=== PATIENT | female | born 1970 | race Caucasian/White ===

== ENCOUNTER 2025-05-06 17:19 | Emergency (ER) | payer OTHER, SELFPAY ==
--- OUTSIDE RECORDS SUMMARY | 2025-04-30 15:20 | XMS_ITS | Encounter Summary ---
Author Organization [facility] Address [address] [place] [id number] Care Team Providers Care Director Organizational Name Role Phone Jennifer Oliver Primary Care Provider [phone] Reason for Visit * Reason Comments TCM BERTA 04/25 - 04/27 for NSTEMI Encounter Details Date Type Department Care Team (Late st Contact Info) Description 04/30/2025 3:20 PM CDT Office Visit [facility] Family [facility] - [place] [address] [place] [address] Jennifer Oliver APNP [address], [place] [id number] TCM (BERTA 04/25 - 04/27 for NSTEMI) Social History Tobacco Use Types Packs/Day Years Used Date Smoking Tobacco: Every Day Cigarettes 0.5 35 Last attempted to quit: 2023 Passive Smoke Exposure: Past Smokeless Tobacco: Never Tobacco Cessation:Ready to Q uit: No; Counseling Given: Yes Comments:counseled by Dr Brandt Alcohol Use Standard Drinks/Week Comments Not Currently 0 (1 standard drink = 0.6 oz pur e alcohol) <1/week B1300 Health Literacy Answer Date Recor ded How often do you need to hav e someone help you when you read instructions, pamphlets, or other written material from your doctor or pharmacy? Never 04/26/2025 [facility] Utilities Answer Date Recorded In the past 12 months has e [employer], gas, oil, or water [employer] threatened to shut off services in your home? No 04/26/2025 Humiliation, Afraid, Rape, and Kick questionnair e Answer Date Recorded Within the last year, have y ou been afraid of your partner or ex-partner? No 04/26/2025 Within the last year, have y ou been humiliated or emotionally abused in other ways by your partner or ex-partner? No Within the last year, have y ou been kicked, hit, slapped, or otherwise physically hurt by your partner or ex-partner? No 04/26/2025 Within the last year, have y ou been raped or forced to have any kind of sexual activity by your partner or ex-partner? No 04/26/2025 Social Connection and Isolation Panel Answer Date Recorded In a typical week, how many times do you talk on the phone with family, friends, or neighbors? More than three times a week 04/26/2025 How often do you get togethe r with friends or relatives? Once a week 04/26/2025 How often do you attend [facility] or methodist services? Never 04/26/2025 Do you belong to any clubs o r organizations such as episcopalian groups, unions, fraternal or athletic groups, or school groups? No 04/26/2025 How often do you attend meet ings of the clubs or organizations you belong to? Never 04/26/2025 Are you , , di vorced, , never , or living with a partner? 04/26/2025 AUDIT-C Answer Date Recorded Q1: How often do you have a drink containing alc ohol? Monthly or less 04/26/2025 Q2: How many drinks containi ng alcohol do you have on a typical day when you are drinking? 1 or 2 04/26/2025 Q3: How often do you have si x or more drinks on one occasion? Never 04/26/2025 Overall Financial Resource Strain (CARDIA) Answe r Date Recorded How hard is it for you to pa y for the very basics like food, housing, medical care, and heating? Not hard at all 04/26/2025 PHQ-2 Answer Date Recorded Patient Health Questionnaire-2 Score 5 12/21/2024 [facility] - Occupational Stress Questionnaire Answer Date Recorded Do you feel stress - tense, restless, nervous, or anxious, or unable to sleep at night because your mind is troubled all the time - these days? Only a little 04/26/2025 Exercise Vital Sign Answer Date Recorde d On average, how many days pe r week do you engage in moderate to strenuous exercise (like a brisk walk)? 0 days 04/26/2025 On average, how many minutes do you engage in exercise at this level? 0 min 04/26/2025 Hunger Vital Sign Answer Date Recorded Within the past 12 months, y ou worried that your food would run out before you got the money to buy more. Never true 04/26/20 25 Within the past 12 months, t he food you bought just didn't last and you didn't have money to get more. Never true 04/26/2025 PRAPARE - Transportation Answer Date Re corded In the past 12 months, has l ack of transportation kept you from medical appointments or from getting medications? No 08/2024 In the past 12 months, has l ack of transportation kept you from meetings, work, or from getting things needed for daily living? No 04/26/2025 Housing Stability Vital Sign Answer Marco e Recorded In the last 12 months, was t here a time when you were not able to pay the mortgage or rent on time? No 04/26/2025 In the past 12 months, how m any times have you moved where you were living? 0 04/26/2025 At any time in the past 12 m [facility], were you homeless or living in a jail (including now)? 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 Sex Female 8:00 PM CDT Gender Identity Not on file Sexual Orientation Not on file documented as of this encounter Last Filed Vital Signs Vital Sign Reading Time Taken Comments Blood Pressure 120/76 04/30/2025 3:34 PM CDT Pulse 75 04/30/2025 3:34 PM CDT Temperature 36.7 C (98 F) 04/30/2025 3:34 PM CDT Respiratory Rate 16 04/30/2025 3:34 PM CDT Oxygen Saturation 98% 04/30/2025 3:34 PM CDT Inhaled Oxygen Concentration - - Weight 65.3 kg (144 lb) 04/30/2025 3:34 PM CDT Height 170.2 cm (5' 7 ) 04/30/2025 3:34 PM CDT Body Mass Index 22.55 04/30/2025 3:34 PM CDT documented in this encounter Functional Status * Are you deaf or do you have serious difficulty hearing Answer Date of Assessment Author Status No 04/26/2025 1:00 AM CDT Sonya Adam RN Active * Are you blind or do you have serious difficulty seeing, even when wearing glasses? Answer Date of Assessment Author Status No 04/26/2025 1:00 AM CDT Sonya Adam RN Active * Do you have serious difficulty walking or climbing stairs? Answer Date of Assessment Author Status No 04/26/2025 1:00 AM JOHNYT Sonya Adam RN Active * Do you have difficulty dressing or bathing? Answer Date of Assessment Author Status No 04/26/2025 1:00 AM CDT Sonya Adam RN Active * Because of a physical, mental, or emotional condition, do you have difficulty doing errands alone such as visiting a doctor's office or shopping? Answer Date of Assessment Author Status No 04/26/2025 1:00 AM JOHNYT Sonya Adam RN Active documented as of this encounter Mental Status * Because of a physical, mental, or emotional condition, do you have serious difficulty concentrating, remembering, or making decisions? Answer Entry Date Author Status No 04/26/2025 1:00 AM CDT Sonya Adam RN Active documented in this encounter Progress Notes * ESMER Bo - 04/30/2025 3:20 PM CDTAddended by: JENNIFER OLIVER on: 2025 09:38 AM Modules accepted: Orders * ESMER Bo - 04/30/2025 3:20 PM CDT Images from the original note were not included. Office Note Reason for Visit/Chief Complaint: TCM (BERTA 04/25 - 04/27 for NSTEMI) History of Present Illness: History of Present Illness The patient presents for TCM after a recent non-STEMI. Medications have been reconciled. She has been resting at home under supervision of her . Her appetite has recently returned to normal, with her diet initially limited to scrambled eggs and Jell-O, but now includes beans and sandwiches. She reports no issues with bowel movements. She experienced nausea without abdominal painand was unable to retain food for 2 to 3 days. She was diagnosed with a kpz-WM-hagjwpeuw myocardialinfarction (non-STEMI) in the ER, which was attributed to microvascular disease. Cardiology evaluating for MINOCA or an atypical type takotusbo cardiomyopathy. An echocardiogram revealed some heart damage, but it was not severe enough to prevent self-healing over the next few months. A CT scan was also performed, which returned normal results. She is scheduled for cardiac rehabilitation once a week for 2 hours each session. She has signed up for short-term disability for her job due to hospitalization. She reports no dental issues and is considering reducing her hydrocodone dosage. She has an upcoming appointment with Dr. Mora on 05/09/2025, which she will need to reschedule due to travel plans. She reports no wrist soreness and has been advised against lifting anything over 5 pounds forthe first week post-procedure. Her first day missed at work was 04/24/25. She has been advised to follow a Mediterranean diet. She is seeking a refill of her Adderall prescription, will check with Cardiology to ensure restart is ok. She has not yet received her influenza vaccine. She would like to receive today. Social History: Diet: Initially limited to scrambled eggs and Jell-O, now includes beans and sandwiches. PAST SURGICAL HISTORY: Gastric bypass PHQ-9: 08/30/2024 9:56 AM 12/21/2024 3:44 PM PHQ2/PHQ 9 DEPRESSION SCREEN QUESTIONAIRE Little interest or pleasure in doing things Several days Over half Feeling down, depressed, or hopeless Over half Almost all Patient Health Questionnaire-2 Score 3 5 Trouble falling or staying asleep, or sleeping too much Not at all Almost all Feeling tired or having little energy Over half Almost all Poor appetite or overeating Not at all Not at all Feeling bad about yourself - or that you are a failure or have let yourself or your family down Almost all Several days Trouble concentrating on things, such as reading the newspaper or watching television Over half Several days Moving or speaking so slowly that other people could have noticed? Or the opposite - being so fidgety or restless that you have been moving around a lot more than usual. Over half Over half Thoughts that you would be better off or hurting yourself in some way Not at all Not at all Patient Health Questionnaire-9 Score 12 15 SKYLER-7 (Generalized Anxiety Disorder) Screening 08/30/2024 9:56 AM 12/21/2024 3:44 PM SKYLER-7 Feeling nervous, anxious, or on edge 3 3 Not being able to stop or control worrying 3 3 Worrying too much about different things 3 3 Trouble relaxing 3 2 Being so restless that it is hard to sit still 3 0 Becoming easily annoyed or irritable 3 3 Feeling afraid as if something awful might happen 3 2 SKYLER-7 Total Score 21 16 How difficult have these problems made it for you to do your work, take care of things at home, or get along with other people? Somewhat difficult Somewhat difficult ROS: Review of Systems Constitutional: Negative for chills and fever. HENT: Negative for ear pain and sore throat. Respiratory: Negative for cough, shortness of breath and wheezing. Cardiovascular: Negative for chest pain and palpitations. Gastrointestinal: Negative for blood in stool, constipation, diarrhea, nausea and vomiting. Genitourinary: Negative for dysuria. Musculoskeletal: Negative for myalgias. Neurological: Negative for focal weakness, weakness and headaches. Psychiatric/Behavioral: Negative for depression and suicidal ideas. Medications: Current Outpatient Medications: albuterol sulfate HFA 108 (90 Base) MCG/ACT inhaler, Inhale 2 puffs into the lungs every 6 (six) hours as needed., Disp: 18 g, Rfl: 0 ALPRAZolam (XANAX) 0.5 MG tablet, Take 1 tablet (0.5 mg total) by mouth 2 (two) times daily as needed for Anxiety., Disp: 60 tablet, Rfl: 2 amphetamine-dextroamphetamine XR (ADDERALL XR) 20 MG 24 hr capsule, Take 1 capsule (20 mg total) bymouth every morning., Disp: 30 capsule, Rfl: 0 aspirin EC (ECOTRIN) 81 MG tablet, Take 1 tablet (81 mg total) by mouth daily for 30 days., Disp: 30 tablet, Rfl: 0 budesonide-formoterol (SYMBICORT) 80-4.5 MCG/ACT inhaler, Inhale 2 puffs into the lungs 2 (two) times daily., Disp: 10.2 g, Rfl: 1 clopidogrel (PLAVIX) 75 MG tablet, Take 1 tablet (75 mg total) by mouth daily., Disp: 90 tablet, Rfl: 3 cyanocobalamin (B-12) 1000 MCG/ML injection, 1000 MCG MONTHLY THEREAFTER, Disp: 30 mL, Rfl: 1 FLUoxetine (PROZAC) 20 MG tablet, Take 1 tablet (20 mg total) by mouth daily. Total dose of 60 mg daily, Disp: 90 tablet, Rfl: 3 FLUoxetine (PROZAC) 40 MG capsule, Take 1 capsule (40 mg total) by mouth nightly. Take a total of 60 mg nightly, Disp: 90 capsule, Rfl: 3 gabapentin (NEURONTIN) 300 MG capsule, Take 300 mg in the morning and 300 mg in the afternoon and 600 mg at bedtime., Disp: 360 capsule, Rfl: 3 HYDROcodone-acetaminophen (NORCO) 5-325 MG tablet, Take 1 tablet by mouth 2 (two) times daily as needed for Pain. Indications: Chronic Pain, Disp: 60 tablet, Rfl: 0 Hydroxychloroquine Sulfate 300 MG Tab, Take 300 mg by mouth 2 (two) times a day., Disp: 180 tablet,Rfl: 3 levothyroxine (SYNTHROID) 175 MCG tablet, Take 1 tablet (175 mcg total) by mouth every morning. Take a total 200 mcg, Disp: 90 tablet, Rfl: 1 levothyroxine (SYNTHROID) 25 MCG tablet, Take 1 tablet (25 mcg total) by mouth every morning., Disp: 90 tablet, Rfl: 1 omeprazole (PRILOSEC) 40 MG capsule, TAKE 1 CAPSULE(40 MG) BY MOUTH DAILY, Disp: 30 capsule, Rfl: 2 ondansetron (ZOFRAN-ODT) 4 MG disintegrating tablet, Take 1 tablet (4 mg total) by mouth every 8 (eight) hours as needed for Nausea., Disp: 20 tablet, Rfl: 0 QUEtiapine (SEROQUEL) 200 MG tablet, Take 1 tablet (200 mg total) by mouth nightly at bedtime., Disp: 90 tablet, Rfl: 3 rOPINIRole (REQUIP) 1 MG tablet, Take 1 tablet (1 mg total) by mouth nightly at bedtime., Disp: 90 tablet, Rfl: 3 rosuvastatin (CRESTOR) 10 MG tablet, Take 1 tablet (10 mg total) by mouth nightly at bedtime., Disp: 90 tablet, Rfl: 1 valACYclovir (VALTREX) 1 g tablet, Take 1 tablet (1,000 mg total) by mouth 2 (two) times daily., Disp: 6 tablet, Rfl: 2 vitamin D2, ergocalciferol, (DRISDOL) 1.25 mg capsule, Take 1 capsule (50,000 Units total) by mouthevery 7 days., Disp: 12 capsule, Rfl: 3 Allergies: Review of patient's allergies indicates: Allergen Reactions Cashew Nut Oil Diarrhea and Nausea and Vomiting Medical History: Past Medical History[1] Surgical History: Past Surgical History[2] Social History: Social History[3] Family History: Family History[4] PE: Physical Exam Vitals and nursing note reviewed. Constitutional: Appearance: Normal appearance. HENT: Head: Normocephalic and atraumatic. Right Ear: External ear normal. Left Ear: External ear normal. Eyes: Pupils: Pupils are equal, round, and reactive to light. Neck: Trachea: No tracheal deviation. Cardiovascular: Rate and Rhythm: Normal rate and regular rhythm. Heart sounds: Normal heart sounds. Pulmonary: Effort: Pulmonary effort is normal. No respiratory distress. Breath sounds: Normal breath sounds. No wheezing. Abdominal: General: Bowel sounds are normal. There is no distension. Palpations: Abdomen is soft. Tenderness: There is no abdominal tenderness. Musculoskeletal: General: Normal range of motion. Lymphadenopathy: Cervical: No cervical adenopathy. Skin: General: Skin is warm and dry. Findings: No rash. Neurological: Mental Status: She is alert and oriented to person, place, and time. Mental status is at baseline. Cranial Nerves: No cranial nerve deficit. Gait: Gait is intact. Psychiatric: Mood and Affect: Mood and affect normal. Cognition and Memory: Memory normal. Judgment: Judgment normal. Physical Exam General: Patient appears rested but slightly pale. Extremities: No soreness or complications noted at the wrist site. Skin: Small wounds noted from blood thinner use. Filed Vitals: 04/30/25 1534 BP: 120/76 Pulse: 75 Resp: 16 Temp: 98 ??F (36.7 ??C) SpO2: 98% Weight: 65.3 kg (144 lb) Height: 1.702 m (5' 7 ) Body mass index is 22.55 kg/m??. Diagnoses/Assessment/Plan: Assessment & Plan 1. Recent sfc-QE-hpjobweaj myocardial infarction (non-STEMI): - Diagnosed with a non-STEMI and underwent a cardiac catheterization, which revealed microvascular disease. - An echocardiogram indicated some heart damage, but it is expected to heal over the next few months. A CT scan was performed to rule out pulmonary embolism and returned normal results. - Discussed her current medications, including Plavix and aspirin for one year. She will start cardiac rehabilitation, attending 2 hours once a week. - A 90-day supply of Plavix with three refills has been prescribed. She is advised to avoid liftinganything over 5 pounds for the first week post- procedure. A work note will be provided to accommodate her rehabilitation schedule. 2. Medication management: - A message will be sent to her separations scientist to confirm if she can continue taking Adderall. - Once confirmation is received, a prescription for Adderall will be sent. -Addendum: Hold Adderall until further consultation with Cardiology. I recommend that you stop it going forward. 3. Health maintenance: - Advised to monitor her intake of sugary and greasy foods. - The influenza vaccine will be administered today. Results Imaging - Echocardiogram: Some heart damage but not enough that it cannot heal itself in a few months. - CT scan: Normal. Medications Discontinued During This Encounter Medication Reason tirzepatide (ZEPBOUND) 15 MG/0.5ML injection Pt. elected to discontinue med clopidogrel (PLAVIX) 75 MG tablet Reorder clopidogrel (PLAVIX) 75 MG tablet Encounter Diagnose(s) ICD-10-CM SNOMED CT(R) 1. Non-STEMI (non-ST elevated myocardial infarction) (CMS/HCC [facility]) I21.4 MYOCARDIAL INFARCTION clopidogrel (PLAVIX) 75 MG tablet 2. Encounter for support and coordination of transition of care Z76.89 PATIENT ENCOUNTER STATUS 3. Hospital discharge follow-up Z09 POST-DISCHARGE FOLLOW-UP I personally spent a total of 32 minutes on the day of the encounter. This includes slce-oc-gbjc and scn-zquv-oc-face time I provided on the day of the encounter & excludes time spent performing separately reportable services. Please note this report has been produced using speech recognition software and may contain errors related to that system including errors in grammar, punctuation, and spelling, as well as words and phrases that may be inappropriate. If there are any questions or concerns please feel free to contact the dictating provider for clarification. Patient consented to the use of Music Messenger (MM)ilot to record and transcribe notes during this visit. ESMER BO 04/30/2025 [1] Past Medical History: Diagnosis Date Arthritis DDD (degenerative disc disease), lumbar Depression SKYLER (generalized anxiety disorder) Hypothyroidism, unspecified Thyroidectomy Pain management Rheumatoid arthritis, unspecified ([facility]) Tobacco abuse, in remission Vitamin B 12 deficiency Vitamin D deficiency [2] Past Surgical History: Procedure Laterality Date ABDOMINOPLASTY APPENDECTOMY CHOLECYSTECTOMY COLONOSCOPY N/A 11/13/2024 COLONOSCOPY WITH TRANSVERSE AND ASCENDING COLON POLYPECTOMIES VIA HOT SNARE AND RECTAL SIGMOID COLON POLYPECTOMIES VIA COLD SNARE performed by Ru Sandoval MD at [facility] GI COSMETIC SURGERY GASTRIC BYPASS HYSTERECTOMY THYROIDECTOMY TOTAL/COMPLETE TONSILLECTOMY TUBAL LIGATION TYMPANOSTOMY TUBE PLACEMENT [3] Social History Socioeconomic History Marital status: Number of children: 4 Tobacco Use Smoking status: Every Day Current packs/day: 0.00 Average packs/day: 0.5 packs/day for 35.0 years (17.5 ttl pk-yrs) Types: Cigarettes Last attempt to quit: 2023 Years since quittin.7 Passive exposure: Past Smokeless tobacco: Never Tobacco comments: counseled by Dr Brandt Vaping Use Vaping status: Never Used Substance and Sexual Activity Alcohol use: Not Currently Comment: <1/week Drug use: Never Sexual activity: Yes Partners: Male control/protection: Surgical Other Topics Concern Caffeine Concern Yes Special Diet No Exercise No Social Drivers of Health Financial Resource Strain: Low Risk (04/26/2025) Overall Financial Resource Strain (CARDIA) Difficulty of Paying Living Expenses: Not hard at all Food Insecurity: No Food Insecurity (04/26/2025) Hunger Vital Sign Worried About Running Out of Food in the Last Year: Never true Ran Out of Food in the Last Year: Never true Transportation Needs: No Transportation Needs (04/26/2025) PRAPARE - Transportation Lack of Transportation (Medical): No Lack of Transportation (Non-Medical): No Physical Activity: Inactive (04/26/2025) Exercise Vital Sign Days of Exercise per Week: 0 days Minutes of Exercise per Session: 0 min Stress: No Stress Concern Present (04/26/2025) [place] [facility] Occupational Health - Occupational Stress Questionnaire Feeling of Stress : Only a little Social Connections: Moderately Isolated (04/26/2025) Social Connection and Isolation Panel [NHANES] Frequency of Communication with Friends and Family: More than three times a week Frequency of Social Gatherings with Friends and Family: Once a week Attends Hinduism Services: Never Active Member of Clubs or Organizations: No Attends Club or Organization Meetings: Never Marital Status: Intimate Partner Violence: Not At Risk (04/26/2025) Humiliation, Afraid, Rape, and Kick questionnaire Fear of Current or Ex-Partner: No Emotionally Abused: No Physically Abused: No Sexually Abused: No Housing Stability: Low Risk (04/26/2025) Housing Stability Vital Sign Unable to Pay for Housing in the Last Year: No Number of Times Moved in the Last Year: 0 Homeless in the Last Year: No [4] Family History Problem Relation Name Age of Onset COPD Mother Rhiannon Arthritis Mother Rhiannon Depression Mother Rhiannon Diabetes Mother Rhiannon CHF Mother Rhiannon Hypertension Mother Rhiannon Alcohol Abuse Father Wiliam Skin cancer Father Wiliam Stroke Brother Hemal 59 Diabetes Brother Gilbert Cancer Maternal Grandmother Faviola Liver cancer Maternal Grandmother Faviola [place] Maternal Grandfather NV Paternal Grandmother documented in this encounter Plan of Treatment Upcoming Encounters Date Type Department Care Team (Late st Contact Info) Description 05/22/2025 9:45 AM CDT Office Visit [facility] [facility], [address] [address] Umm Peterson FNP 3 [facility] [address] [place] [address] 05/23/2025 12:30 PM CDT Appointment [facility] Cardiopulmonary Rehab [address] [place] [address] Carlos Eduardo Mora MD [facility]. [facility] [address] [place], [place] [id number] documented as of this encounter Visit Diagnoses Diagnosis Non-STEMI (non-ST elevated myocardial infarction) ([facility])- Primary Acute myocardial infarction, subendocardial infarction, episode of care unspecified Encounter for support and coordination of transition of care Hospital discharge follow-up Other follow-up examination documented in this encounter Additional Health Concerns Assessment Noted Time PHQ-9 Depression Total Score: 15 025 3:44 PM CDT documented as of this encounter Care Teams Director Organizational Relationship Specialty Start Date End Date Jennifer Oliver APNP [address] [place] [address] PCP - General NURSE PRACTITIONER 08/30/24 documented as of this encounter
[2025-05-06] VITALS (17 sets, daily range): BP systolic 109–168; BP diastolic 66–95; PULSE 70–83; RESP 16–25; TEMP 36.8; O2SAT 93–100; BMI 21.6
--- NOTE | 2025-05-06 17:21 | XRR_ITS ---
PROCEDURE INFORMATION: Exam: XR Chest Exam date and time: 05/06/2025 5:44 PM Age: 55 years old Clinical indication: Pain; Chest pressure; Additional info: Chest pain TECHNIQUE: Imaging protocol: Radiologic exam of the chest. Views: 1 view. COMPARISON: No relevant prior studies available. FINDINGS: Lungs: There is no consolidation. Pleural spaces: No pleural effusion or pneumothorax. Heart/Mediastinum: The heart and mediastinum are normal in size. Bones/joints: Unremarkable. XR/XR chest 1V portable [id number] IMPRESSION: No acute findings.
--- OUTSIDE RECORDS SUMMARY | 2025-05-06 17:30 | XMS_ITS | Encounter Summary ---
Author Organization [facility] Address [address] [place] [address] Care Team Providers Care Payment Rep Name Role Phone Eleno Brandt MD Primary Care Provider [phone] Cyndee Oliver Primary Care Provider [phone] Encounter Details Date Type Department Care Team (Latest Contact Info) Description 04/01/2022 MyChart Message Enc [facility] Multispecialty Care - [place] [address] [address] [place] [address] Eleno Brandt MD [address] [place] [address] [address] [place] [address] Due for mammogram scheduling Social History Tobacco Use Types Packs/Day Years Used Date Smoking Tobacco: Every Day Cigarettes 0.5 35 Smokeless Tobacco: Never Comments:counseled by Dr Humaira queen Alcohol Use Standard Drinks/Week Comments Yes 0 (1 standard drink = 0.6 oz pur e alcohol) Socially PHQ-2 Answer Date Recorded PHQ-2 Score - If the patient scores above 3, please move on to questions 3-9 0 02/16/2022 Comments No Sex and Gender Information Value Date Recorded Sex Assigned at Female 08/09/2024 9:28 AM THERMODYNAMICIST Legal Sex Female 8:00 PM CDT Gender Identity Not on file Sexual Orientation Not on file COVID-19 Exposure Response Date Recorded In the last 10 days, have yo u been in contact with someone who was confirmed or suspected to have Coronavirus/COVID-19? No / Unsure 03/12/2022 12:29 PM CDT documented as of this encounter Plan of Treatment Upcoming Encounters Date Type Department Care Team (Late st Contact Info) Description 05/22/2025 9:45 AM CDT Office [facility] [address] [place] [address] Umm Peterson FNP [address] [facility] [address] [place], [place] [id number] 05/23/2025 12:30 PM CDT Appointment [facility] [address] [place] [address] Carlos Eduardo Mora MD Three [facility]. [address] [place], [place] [id number] documented as of this encounter Visit Diagnoses Not on filedocumented in this encounter Additional Health Concerns Infection Onset Date Last Indicated Resolved Time COVID-19 Rule Out 04/06/2022 04/06/2022 04/06/2022 10:36 AM CDT COVID-19 Confirmed 04/06/2022 04/09/2022 12:32 AM CDT COVID-19 Rule Out 08/10/2022 08/10/2022 08/10/2022 1:03 PM THERMODYNAMICIST COVID-19 Rule Out 06/05/2024 06/05/2024 06/05/2024 6:55 AM THERMODYNAMICIST COVID-19 Confirmed 06/05/2024 06/05/2024 12:33 AM THERMODYNAMICIST COVID-19 Rule Out 08/30/2024 08/30/2024 08/30/2024 3:04 PM THERMODYNAMICIST COVID-19 Confirmed 08/30/2024 08/30/2024 12:32 AM THERMODYNAMICIST Assessment Noted Time PHQ-9 Depression Total Score: 9 01/20/20 22 2:56 PM CDT documented as of this encounter Care Teams Payment Rep Relationship Specialty Start Date End Date Eleno Brandt MD [address] [address] PCP - General INTERNAL MEDICINE 01/19/22 08/29/24 Cyndee Oliver APNP [address] [place] [address] PCP - General NURSE PRACTITIONER 08/30/24 documented as of this encounter
--- OUTSIDE RECORDS SUMMARY | 2025-05-06 17:30 | XMS_ITS | Encounter Summary ---
Author Organization [facility] Address [address] [place] [address] Care Team Providers Care Escalation Engineer Name Role Phone Eleno Brandt MD Primary Care Provider [phone] Cyndee Olievr Primary Care Provider [phone] Encounter Details Date Type Department Care Team (Latest Contact Info) Description 07/28/2024 MyChart Message Enc [facility] Medical Group Multispecialty Care - [place] [address] [address] [place], [place] [id number] Eleno Brandt MD [address] [place] [address] [address] [place] [address] Neck and shoulder pain Social History Tobacco Use Types Packs/Day Years Used Date Smoking Tobacco: Former Cigarettes 0.5 35 Q uit: 2023 Passive Smoke Exposure: Past Smokeless Tobacco: Never Comments:counseled by Dr Humaira queen Alcohol Use Standard Drinks/Week Comments Not Currently 0 (1 standard drink = 0.6 oz pur e alcohol) <1/week PHQ-2 Answer Date Recorded Patient Health Questionnaire-2 Score 1 05/31/2024 Comments No Sex and Gender Information Value Date Recorded Sex Assigned at Female 08/09/2024 9:28 AM COAT OPERATOR INSULATOR Legal Sex Female 8:00 PM CDT Gender Identity Not on file Sexual Orientation Not on file documented as of this encounter Plan of Treatment Upcoming Encounters Date Type Department Care Team (Late st Contact Info) Description 05/22/2025 9:45 AM CDT [facility], [address] [place], [place] [address] Umm Petersno FNP [address] [facility] [address] [place] [address] 05/23/2025 12:30 PM CDT Appointment [facility] Cardiop[facility] Rehab [address] [place] [address] Carlos Eduardo Mora MD Three [facility]. [facility] [address] [place], [place] [id number] documented as of this encounter Visit Diagnoses Not on filedocumented in this encounter Additional Health Concerns Infection Onset Date Last Indicated Resolved Time COVID-19 Rule Out 08/30/2024 08/30/2024 08/30/2024 3:04 PM COAT OPERATOR INSULATOR COVID-19 Confirmed 08/30/2024 08/30/2024 12:32 AM COAT OPERATOR INSULATOR Assessment Noted Time PHQ-9 Depression Total Score: 5 05/31/20 24 10:49 AM COAT OPERATOR INSULATOR documented as of this encounter Care Teams Escalation Engineer Relationship Specialty Start Date End Date Eleno Brandt MD [address] [facility] [address] [place] [address] PCP - General INTERNAL MEDICINE 01/19/22 08/29/24 Cyndee Oliver APNP [address] [place] [id number] PCP - General NURSE PRACTITIONER 08/30/24 documented as of this encounter
--- OUTSIDE RECORDS SUMMARY | 2025-05-06 17:30 | XMS_ITS | Clinical Summary ---
Author Organization [facility] Address [facility] [place] [address] Care Team Providers Care Insurance Agency Manager Name Role Phone Cyndee Oliver ESMER Primary Care Provider [phone] Allergies Active Allergy Reactions Criticality Noted Date Comments Cashew Nut Oil Diarrhea,Nausea and Vomiting Medications valACYclovir (VALTREX) 1 g tabletIndications :Cold sore Take 1 tablet (1,000 mg total) by mouth 2 (two) times daily. 6 tablet 2 024 Active vitamin D2, ergocalciferol, (DRISDOL) 1.25 mg capsuleIndication s:Vitamin D deficiency Take 1 capsule (50,000 Units total) by mouth every 7 days. 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 90 tablet 1 024 Active gabapentin (NEURONTIN) 300 MG capsuleIndication s:Paresthesia Take 300 mg in the morning and 300 mg in the afternoon and 600 mg at bedtime. 360 capsule 3 024 Active cyanocobalamin (B-12) 1000 MCG/ML injectionIndicati ons:Fatigue, unspecified type 1000 MCG MONTHLY THEREAFTER 30 mL 1 024 Active albuterol sulfate HFA 108 (90 Base) MCG/ACT inhalerIndication s:Lab test positive for detection of COVID-19 virus Inhale 2 puffs into the lungs every 6 (six) hours as needed. 18 g 024 Active budesonide-formot alexandra (SYMBICORT) 80-4.5 MCG/ACT inhalerIndication s:Upper respiratory tract infection, unspecified type Inhale 2 puffs into the lungs 2 (two) times daily. 10.2 g 1 025 Active levothyroxine (SYNTHROID) 25 MCG tabletIndications :Postoperative hypothyroidism Take 1 tablet (25 mcg total) by mouth every morning. 90 tablet 1 025 Active levothyroxine (SYNTHROID) 175 MCG tabletIndications :Postoperative hypothyroidism Take 1 tablet (175 mcg total) by mouth every morning. Take a total 200 mcg 90 tablet 1 025 Active Hydroxychloroquin e Sulfate 300 MG TabIndications:Rh eumatoid arthritis flare (CMS/HCC HHS/HCC) Take 300 mg by mouth 2 (two) times a day. 180 tablet 3 025 Active FLUoxetine (PROZAC) 40 MG capsuleIndication s:Generalized anxiety disorder,Mild episode of recurrent major depressive disorder Take 1 capsule (40 mg total) by mouth nightly. Take a total of 60 mg nightly 90 capsule 3 025 Active FLUoxetine (PROZAC) 20 MG tabletIndications :Generalized anxiety disorder,Moderate episode of recurrent major depressive disorder (CMS/HCC),Mild episode of recurrent major depressive disorder Take 1 tablet (20 mg total) by mouth daily. Total dose of 60 mg daily 90 tablet 3 025 Active rOPINIRole (REQUIP) 1 MG tabletIndications :RLS (restless legs syndrome) Take 1 tablet (1 mg total) by mouth nightly at bedtime. 90 tablet 3 025 Active QUEtiapine (SEROQUEL) 200 MG tabletIndications :Recurrent major depressive disorder, in full remission Take 1 tablet (200 mg total) by mouth nightly at bedtime. 90 tablet 3 025 Active ALPRAZolam (XANAX) 0.5 MG tabletIndications :Generalized anxiety disorder Take 1 tablet (0.5 mg total) by mouth 2 (two) times daily as needed for Anxiety. 60 tablet 2 025 Active omeprazole (PRILOSEC) 40 MG capsuleIndication s:Acute gastric ulcer without hemorrhage or perforation TAKE 1 CAPSULE(40 MG) BY MOUTH DAILY 30 capsule 2 025 Active HYDROcodone-aceta minophen (NORCO) 5-325 MG tabletIndications :Chronic Pain Take 1 tablet by mouth 2 (two) times daily as needed for Pain. Indications: Chronic Pain 60 tablet Active aspirin EC (ECOTRIN) 81 MG tablet Take 1 tablet (81 mg total) by mouth daily for 30 days. 30 tablet 025 2024 Active ondansetron (ZOFRAN-ODT) 4 MG disintegrating tablet Take 1 tablet (4 mg total) by mouth every 8 (eight) hours as needed for Nausea. 20 tablet 025 Active clopidogrel (PLAVIX) 75 MG tabletIndications :Non-STEMI (non-ST elevated myocardial infarction) (CMS/HCC HHS/HCC) Take 1 tablet (75 mg total) by mouth daily. 90 tablet 3 Active ondansetron (ZOFRAN) 4 MG tabletIndications :Lab test positive for detection of COVID-19 virus Take 1 tablet (4 mg total) by mouth every 8 (eight) hours as needed. 20 tablet 024 2024 Discontinued(S top Taking at Discharge) tirzepatide (ZEPBOUND) 15 MG/0.5ML injectionIndicati ons:Weight Loss Inject 15 mg into the skin once a week. Indications: Weight Loss 6 mL 1 025 2024 Discontinued(P t. elected to discontinue med) ALPRAZolam (XANAX) 0.5 MG tabletIndications :Generalized anxiety disorder Take 1 tablet (0.5 mg total) by mouth 2 (two) times daily as needed for Anxiety. 60 tablet 2 025 2024 Discontinued(R eorder) omeprazole (PRILOSEC) 40 MG capsuleIndication s:Acute gastric ulcer without hemorrhage or perforation Take 1 capsule (40 mg total) by mouth daily for 30 days. 30 capsule 025 2024 Discontinued sucralfate (CARAFATE) 1 G tabletIndications :Acute gastric ulcer without hemorrhage or perforation Take 1 tablet (1 g total) by mouth 4 (four) times daily before meals and nightly. 120 tablet 025 2024 Discontinued HYDROcodone-aceta minophen (NORCO) 5-325 MG tabletIndications :Chronic Pain Take 1 tablet by mouth 2 (two) times daily as needed for Pain. Indications: Chronic Pain 60 tablet 025 2024 Discontinued(R eorder) amphetamine-dextr oamphetamine XR (ADDERALL XR) 20 MG 24 hr capsuleIndication s:Attention deficit hyperactivity disorder (ADHD), unspecified ADHD type Take 1 capsule (20 mg total) by mouth every morning. 30 capsule 025 2024 Discontinued(E xpired (Clinician Removed from Med list)) omeprazole (PRILOSEC) 40 MG capsuleIndication s:Acute gastric ulcer without hemorrhage or perforation TAKE 1 CAPSULE(40 MG) BY MOUTH DAILY 30 capsule 025 2024 Discontinued sucralfate (CARAFATE) 1 G tabletIndications :Acute gastric ulcer without hemorrhage or perforation TAKE 1 TABLET(1 GRAM) BY MOUTH FOUR TIMES DAILY BEFORE MEALS AND AT NIGHT 120 tablet 025 2024 Discontinued(S top Taking at Discharge) clopidogrel (PLAVIX) 75 MG tablet Take 1 tablet (75 mg total) by mouth daily for 30 days. 30 tablet 025 2024 Discontinued(R eorder) clopidogrel (PLAVIX) 75 MG tabletIndications :Non-STEMI (non-ST elevated myocardial infarction) ([facility]/HCC HHS/HCC) Take 1 tablet (75 mg total) by mouth daily for 30 days. 30 tablet 025 2024 Discontinued Active Problems Problem Noted Date Diagnosed Date NSTEMI (non-ST elevated myocardial infarction) 1 Abducens nerve palsy 01/04/2025 Arthralgia of knee 01/04/2025 Cigarette smoker 01/04/2025 Overview (01/04/2025): Congratulated pt on desire to quit. Reviewed options for cessation and methods of obtaining chantix. [place]ix, but her work will reimburse 100$ for chantix. Gave pt a script and information on chantix and told her to call if she is unable to handle the cost. Depression 01/04/2025 Fibrocystic breast disease 01/04/2025 Overview (01/04/2025): encouraged pt to decrease caffeine use and to avoid alcohol and tobacco. No suspicous masses at this time. Folliculitis 01/04/2025 Galactorrhea not associated with childbirth 12/24 Overview (01/04/2025): Guiac was negative. will refer pt for mammogram of biilateral breast. Pt to f/u after. 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 Reports good control of depression w/current regimen. No changes to be made at this time. Reviewed med Ses & scheduling. Reviewed red flags. Seropositive rheumatoid arthritis of multiple danyel ints 05/17/2019 Overview (01/19/2022): Last Assessment & Plan: Has upcoming appt w/Dr Lindsey Hester 11/2021. Tobacco dependence due to cigarettes 03/28/2019 Overview (01/19/2022): Last Assessment & Plan: Precontemplative. Encouraged complete smoking cessation. Discussed different types of medications & [id number] aides to help with cessation. Vitamin D deficiency 05/08/2018 Overview (01/19/2022): Last Assessment & Plan: Takes vitamin D The blood level will be checked today. Advise to get 10 min of sun exposure to the hands and face 2-3 days of the week to boost Vit D levels. Insomnia 06/27/2014 Overview (01/19/2022): Insomnia Last Assessment & Plan: Has tried multiple different medications for her insomnia. Does not want further BZD. Will trial clonidine 0.1mg qhs. Reviewed med SE & scheduling. Will stop med/call if no improvement. Reviewed good sleep hygiene: no electronics, cool/dark room, warm shower/tub prior to bedtime, no caffeine after 3-4p, no exercise 3hr prior to sleep. Insomnia 06/27/2014 Overview (11/01/2024): Insomnia Generalized anxiety disorder 06/26/2014 Overview (01/19/2022): Generalized anxiety disorder Last Assessment & Plan: No longer taking xanax. Does not want further BZD. Doing well w/hydroxyzine prn. No changes at this time. Hypothyroidism 06/26/2014 Overview (01/19/2022): Hypothyroidism Last Assessment & Plan: Levothyroxine 200mcg daily. TSH/T4 ordered; will contact with results when received. Reviewed med SE & scheduling. Reviewed sxs hypo/hyperthyroidism. No changes at this time. 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 02/23/2025 Dysfunctional uterine bleeding 01/04/2025 02/23/2025 Inadequate cervical cytology sample 01/04/2025 02/23/2025 Irregular menstrual cycle 01/04/2025 Menorrhagia 01/04/2025 02/23/2025 Rash 01/04/2025 02/23/2025 Ruptured synovial cyst of knee 01/04/2025 02/23/2025 Screen for colon cancer 06/14/202405/27 Screen for colon cancer 06/14/202410/24 Screen for colon cancer 06/14/202410/25 Screen for colon cancer 09/07/202308/26 Encounters Date Type Department Care Team Description 05/02/2025 Telephone [facility] [place] [address] [place] [address] Cyndee Oliver APNP Error 2025 MyChart Message Enc [facility] [place] [address] [place] [address] Cyndee Oliver APNP Adderall to be stopped 04/30/2025 3:20 PM CDT Office Visit [facility] [place] [address] [place] [address] Cyndee Oliver APNP TCM (BERTA 04/25 - 04/27 for NSTEMI) 04/30/2025 Travel 04/30/2025 Telephone [facility] [address] [place] [address] Cyndee Oliver APNP TCM 04/27/2025 Telephone [facility] [address] [address] Carlos Eduardo Mora MD Orders 04/26/2025 Telephone [facility], [address] [address] Carlos Eduardo Mora MD Lab Order 04/25/2025 8:14 PM CDT - 04/27/2025 10:30 AM CDT Hospital Encounter Health system [place] [address] Kendrick De La Cruz MD,PHD Ludin Blackburn MD Islam, Maaroof, MD Nausea Discharge Disposition: Home or Self Care (Routine Discharge) 04/25/2025 Travel 04/02/2025 Patient Self-Triage [facility] Provider 04/02/2025 Patient Self-Triage [facility] Provider 04/02/2025 Patient Self-Triage [facility] DEFAULT Mychart, [facility] Provider 04/02/2025 Patient Self-Triage [facility] DEFAULT Mychart, [facility] Provider 03/23/2025 3:40 PM CDT Office Visit [facility] [address] [place] [address] Cyndee Oliver APNP Medication ( Refill wants to discuss increasing her seroquil ) 03/23/2025 Travel 03/21/2025 Misc Documentation [facility] [address] [place] [address] Cyndee Oliver APNP from Last 3 Months Immunizations Immunization Administration Dates Next Due Hepatitis A/Hepatitis B(Twinrix) 05/19/2010 Influenza (Generic) 05/17/2024,,07/30/2019,2009 Influenza Adult (Generic) 06/25/2023,,04/15/2020,2019,03/26/2015,05/25/2014 MODERNA COVID-19 (12+) MRNA, LNP-S, PF, 100 MCG/ 0.5 ML DOSE 05/28/2021 PFIZER COVID-19 (ORIGINAL FORMULATION, PURPLE CAP) mRNA, LNP-S, PF, 30 MCG/0.3 ML DOSE 11/23/2021,07/29/2020,07/12/2020 Pneumococcal (Pneumovax 23) 07/24/2022 Pneumococcal (Prevnar 20) 05/31/2024 Shingrix 08/01/2022 Tdap (Adacel) 02/17/2022 Tdap (Generic) 05/19/2010 Family History Medical History Relation Comments Diabetes Brother Stroke Brother 59 Alcohol Abuse Father Skin cancer Father NC Maternal Grandfather Cancer Maternal Grandmother Liver cancer Maternal Grandmother Arthritis Mother CHF Mother COPD Mother Depression Mother Diabetes Mother Hypertension Mother NC Paternal Grandmother Relation Status Comments Brother Father Alive Maternal Grandfather Maternal Grandmother Mother Paternal Grandfather Paternal Grandmother Social History Tobacco Use Types Packs/Day Years [...] from your doctor or pharmacy? Never 04/26/2025 [facility] Utilities Answer Date Recorded In the past 12 months has [facility] [employer], [employer], or water [employer] threatened to shut off services in your [...] week 04/26/2025 How often do you attend chur or worship services? Never 04/26/2025 Do you belong to any clubs o r organizations such as congregational groups, unions, fraternal or athletic groups, or [...] Recorded Patient Health Questionnaire-2 Score 5 12/21/2024 [facility] - Occupational Stress [...] any time in the past 12 m [facility], were you homeless or living in a detention (including now)? 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 Legal Sex Female 8:00 PM CDT Gender Identity Not on file Sexual Orientation Not on file Last Filed Vital Signs Vital Sign Reading [...] Mass Index 22.55 04/30/2025 3:34 PM CDT Plan of Treatment Upcoming Encounters Date Type Department Care Team (Late st Contact Info) Description 05/22/2025 9:45 AM CDT Office Visit [facility], [address] [address] Umm Peterson, SEEMA [address] [facility] [address] [place], [place] [phone] 05/23/2025 12:30 PM CDT Appointment Health system Cardiopulmonary Rehab [address] [facility] [place] [address] Carlos Eduardo Mora MD Three [facility]. [address] [place], [place] [id number] Health Maintenance Due Date Last Done Comments Hepatitis B Vaccines (2 of 3 - Hep B Twinrix 3-dose series) 06/16/2010 05/19/2010 Zoster Vaccines (2 of 2) 09/26/2022 08/01/2022 Mammogram Screening 04/23/2024 04/23/2022 COVID-19 Vaccine ( season) 2025 11/23/2021, 05/28/2021, 07/29/2020, Additional history exists Influenza Adult (#1) 2025 05/17/2024, 06/25/2023, 06/24/2022, Additional history exists Annual Physical 05/31/2025 05/31/2024, 0803/2023, 01/19/2022 DTaP, Tdap and Td Vaccines (3 - Td or Tdap) 02/18/2032 02/17/2022, 05/19/2010 Colorectal Cancer Screening Colonoscopy (10 Years) 11/13/2034 11/13/2024 Pneumococcal Vaccine: 50+ Years Completed 05/31/2024, 07/24/2022 Hepatitis C Completed 07/04/2024, 06/25, 07/04/2024, Additional history exists PHQ-2 (Physician [place]) Completed 12/21/2024 Meningococcal B Vaccine Aged Out No l onger eligible based on patient's age to complete this topic Meningococcal Vaccine Aged Out No santos esther eligible based on patient's age to complete this topic RSV Immunizations Under 20 Months Aged Out No longer eligible based on patient's age to complete this topic Procedures Procedure Name Priority Date/Time Associated Diagnosis Comments BASIC METABOLIC PANEL Routine 04/27/2025 5:20 AM CDT CBC W/DIFF AUTOMATED Routine 04/27/2025 5:[address] ABD+PEL W CON Today 04/26/2025 2:32 PM CDT USE ECHO 2D FU LTD W CON Today 04/26/2025 2:29 PM CDT XA LHC POSS Today 04/26/2025 10:26 AM CDT POCT ACTIVATED CLOTTING TIME - ISTAT DOCKED DEVICE Routine 04/26/2025 10:12 AM CDT URINE BACTERIA CULTURE Routine 9:10 AM CDT HEPARIN, ANTI XA, UFH TIMED 04/26/2025 6:05 AM CDT LIPID PANEL Routine 04/26/2025 6:05 AM CDT TROPONIN, QUANT Routine 04/26/2025 6:05 AM CDT BASIC METABOLIC PANEL Routine 04/26/2025 6:05 AM CDT THYROID STIM HORMONE TSH Routine 04/26/2025 6:05 AM CDT HEMOGLOBIN, GLYCOSYLATED Routine 04/26/2025 6:05 AM CDT MAGNESIUM Routine 04/26/2025 6:05 AM CDT CBC W/DIFF AUTOMATED Routine 04/26/2025 6:05 AM CDT PROTHROMBIN TIME, VENOUS Routine 04/26/2025 6:05 AM CDT PROTHROMBIN TIME, VENOUS STAT 04/25/2025 11:34 PM CDT HEPARIN, ANTI XA, UFH STAT 04/25/2025 11:34 PM CDT TROPONIN, QUANT STAT 04/25/2025 11:34 PM CDT HC URINALYSIS AUTO W/O MICRO STAT 04/25/2025 9:13 PM CDT POCT GLUCOSE - DOCKED DEVICE Routine 04/25/2025 8:48 PM CDT ECG 12-LEAD Routine 04/25/2025 8:46 PM CDT POCT GLUCOSE - DOCKED DEVICE Routine 04/25/2025 6:32 PM CDT TROPONIN, QUANT STAT 04/25/2025 6:31 PM CDT LIPASE STAT 04/25/2025 6:31 PM CDT COMPREHENSIVE METABOLIC PANEL STAT 04/25/2025 6:31 PM CDT CBC W/DIFF AUTOMATED STAT 04/25/2025 6:31 PM CDT HEP C SCANNED ORDERS Routine 07/04/2024 MG SCREENING W ARRON JESS DIGI Routine 04/23/2022 2:29 PM CDT Encounter for screening mammogram for malignant neoplasm of breast from Last 3 Months or Most Recently Relevant to Health Maintenance Results * (ABNORMAL) BASIC METABOLIC PANEL (04/27/2025 5:20 AM CDT) Only the most recent of2 resultswithin the time period is included. GLUCOSE 74 70 - 99 MG/DL 04/27/2025 6:00 AM CDT [facility] BUN 12 7 - 18 MG/DL 04/27/2025 6:00 AM CDT [facility] CREATININE S/P/B 0.59 0.55 - 1.02 MG/DL 04/27/2025 6:00 AM CDT [facility] SODIUM S/P/B 138 136 - 145 MMOL/L 04/27/2025 6:00 AM T [facility] POTASSIUM S/P/B 3.2(L) 3.5 - 5.1 MMOL/L 04/27/2025 6:00 AM T [facility] CHLORIDE S/P/B 109 97 - 115 MMOL/L 04/27/2025 6:00 AM T [facility] CO2 23.8 21 - 32 MMOL/L 04/27/2025 6:00 AM T [facility] CALCIUM S/P/B 8.0(L) 8.5 - 10.1 MG/DL 04/27/2025 6:00 AM T [facility] ANION GAP 5.2 2 - 10 MMOL/L 04/27/2025 6:00 AM T [facility] BUN CREATININE RATIO 20.5 6 - 26 04/27/2025 6:00 AM T [facility] GFR ESTIMATE >90 >90 ML/MIN/1.7 3 M2 04/27/2025 6:00 AM T [facility] Comment: NOTE: eGFR is not calculated for patients <18 years of age or gender unknown. This is an estimated GFR calculation using the new CKD EPI creatinine equation without race and so does not require a correction factor for race. This estimated GFR should not be used for calculating drug doses. 04/27/2025 5:20 AM CDT Adenike León MD LABORATORY Final Result [facility] [address] [place] [address], [place] [phone] * (ABNORMAL) CBC W/DIFF AUTOMATED (04/27/2025 5:20 AM CDT) Only the most recent of3 resultswithin the time period is included. [facility] Signature WBC 4.72 4.5 - 11.0 x10'3/uL 04/27/2025 6:23 AM CDT [facility] RBC 3.47(L) 4.20 - 5.40 x10'6/uL 04/27/2025 6:23 AM CDT [facility] HGB 10.2(L) 12.0 - 16.0 G/DL 04/27/2025 6:23 AM CDT [facility] HCT 30.6(L) 38.0 - 48.0 % 04/27/2025 6:23 AM CDT [facility] MCV 88.2 81.0 - 99.0 FL 04/27/2025 6:23 AM CDT [facility] MCH 29.4 27.0 - 31.0 PG 04/27/2025 6:23 AM CDT [facility] MCHC 33.3 32.0 - 36.0 G/DL 04/27/2025 6:23 AM CDT [facility] RDW 14.7(H) 11.5 - 14.5 % 04/27/2025 6:23 AM CDT [facility] PLT 191 130 - 400 x10'3/uL 04/27/2025 6:23 AM CDT [facility] MPV 11.0 9.3 - 12.2 FL 04/27/2025 6:23 AM CDT [facility] DIFFERENTIAL TYPE AUTOMATED DIFFERENTIAL 04/27/2025 6:23 AM CDT [facility] NEUTROPHILS % 38.2 % 04/27/2025 6:23 AM CDT [facility] LYMPHOCYTES % 47.5 % 04/27/2025 6:23 AM CDT [facility] MONOCYTES % 8.3 % 04/27/2025 6:23 AM CDT [facility] EOSINOPHILS 4.7 % 04/27/2025 6:23 AM CDT [facility] BASOPHILS 1.1 % 04/27/2025 6:23 AM CDT [facility] IMMATURE GRANS % 0.2 % 04/27/20 6:23 AM CDT [facility] ABS. NEUTROPHILS 1.81 1.80 - 7.70 x10'3/uL 04/27/2025 6:23 AM CDT [facility] ABS. LYMPHOCYTES 2.24 1.00 - 4.80 x10'3/uL 04/27/2025 6:23 AM CDT [facility] ABS. MONOCYTES 0.39 0.24 - 0.86 x10'3/uL 04/27/2025 6:23 AM CDT [facility] ABS. EOSINOPHILS 0.22 0.04 - 0.36 x10'3/uL 04/27/2025 6:23 AM CDT [facility] ABS. BASOPHILS 0.05 0.01 - 0.08 x10'3/uL 04/27/2025 6:23 AM CDT [facility] ABS. IMMATURE GRANULOCYTES 0.01 0.00 - 0.49 x10'3/uL 04/27/2025 6:23 AM CDT [facility] 04/27/2025 5:20 AM CDT Adenike León MD LABORATORY Final Result [facility] [address] [place] [address], * CT ABD+PEL W CON (04/26/2025 2:32 PM CDT) Anatomical Region Laterality Modality Abdomen Computed Tomogra phy 04/26/2025 6:25 PM CDT Impressions 04/26/2025 6:32 PM CDT IMPRESSION: 1. No acute abnormality is seen within the abdomen or pelvis. 2. Nonspecific gaseous distention of sigmoid colon. Continued attention on short interval follow-up x-ray KUB is recommended. 3. Status post gastric bypass. 4. Status post cholecystectomy. 5. Possible 3.7 cm left ovarian cyst, almost certainly benign.. A follow-up pelvic ultrasound in 12 months is recommended for evaluation Ordered By: LUDIN BLACKBURN Interpreted By: Philip Mccall MD, 04/26/2025 6:25 PM Narrative 04/26/2025 6:32 PM CDT [address] [address] PROCEDURE: CT ABD+PEL W CON HISTORY: Nausea. TECHNIQUE: Helical CT of the abdomen and pelvis was performed using non-ionic intravenous contrast (Isovue-370, 100 mL). No oral contrast administered. A dose lowering technique was used for this procedure, which may include, but is not limited to, dose reduction technique, automated exposure control, the use of iterative reconstruction, and ALARA (As Low As Reasonably Achievable) / Image Gently techniques. COMPARISON: None. FINDINGS CT ABDOMEN/PELVIS: Lower thorax: There is subsegmental atelectasis in the lower lobes. The heart is normal in size. Liver: The liver is normal in size. There is no intrahepatic mass. Biliary tree: The patient is post cholecystectomy. Mild intrahepatic biliary duct dilatation, likely secondary to reservoir effect. The common bile duct measures up to 10 mm Spleen: The spleen is normal in size. Pancreas: The pancreas is normal in size and enhances homogenously. Adrenal glands: The adrenal glands are normal in size and shape. Kidneys: There are bilateral symmetric nephrograms without hydronephrosis. Lymph nodes: Abdomen: There is no abdominal adenopathy. Pelvis: There is no pelvic adenopathy. Vasculature: There is no abdominal aortic aneurysm. Atherosclerotic calcification is seen. Peritoneum/mesentery/omentum: There is no free fluid or free air. GI tract: There is no bowel obstruction. There is no abnormal bowel wall thickening to suggest acute inflammation. There is retained enteric contrast seen within the right colon. There are postsurgical changes from prior gastric bypass. Nonspecific gaseous of the sigmoid colon. Pelvic urogenital structures:The bladder is grossly unremarkable. The uterus is not seen. There is a 3.7 cm pelvic cystic lesion, likely adnexal in origin. Body wall: There are degenerative changes in the spine. No aggressive osseous lesions identified. Hjaveri: (S/I) = series number / image number Procedure Note Philip Mccall MD - 04/26/[address] [address] PROCEDURE: CT ABD+PEL W CON HISTORY: Nausea. TECHNIQUE: Helical CT of the abdomen and pelvis was performed usingnon-ionic intravenous contrast (Isovue-370, 100 mL). No oral contrastadministered. A dose lowering technique was used for this procedure, which may include,but is not limited to, dose reduction technique, automated exposurecontrol, the use of iterative reconstruction, and ALARA (As Low AsReasonably Achievable) / Image Gently techniques. COMPARISON: None. FINDINGS CT ABDOMEN/PELVIS: Lower thorax: There is subsegmental atelectasis in the lower lobes. Theheart is normal in size. Liver: The liver is normal in size. There is no intrahepatic mass. Biliary tree: The patient is post cholecystectomy. Mild intrahepaticbiliary duct dilatation, likely secondary to reservoir effect. The commonbile duct measures up to 10 mm Spleen: The spleen is normal in size. Pancreas: The pancreas is normal in size and enhances homogenously. Adrenal glands: The adrenal glands are normal in size and shape. Kidneys: There are bilateral symmetric nephrograms withouthydronephrosis. Lymph nodes: Abdomen: There is no abdominal adenopathy. Pelvis: There is no pelvic adenopathy. Vasculature: There is no abdominal aortic aneurysm. Atheroscleroticcalcification is seen. Peritoneum/mesentery/omentum: There is no free fluid or free air. GI tract: There is no bowel obstruction. There is no abnormal bowel wallthickening to suggest acute inflammation. There is retained entericcontrast seen within the right colon. There are postsurgical changes fromprior gastric bypass. Nonspecific gaseous of the sigmoid colon. Pelvic urogenital structures:The bladder is grossly unremarkable. Theuterus is not seen. There is a 3.7 cm pelvic cystic lesion, likely adnexalin origin. Body wall: There are degenerative changes in the spine. No aggressiveosseous lesions identified. Jhaveri: (S/I) = series number / image number IMPRESSION: 1. No acute abnormality is seen within the abdomen or pelvis. 2. Nonspecific gaseous distention of sigmoid colon. Continued attentionon short interval follow-up x-ray KUB is recommended. 3. Status post gastric bypass. 4. Status post cholecystectomy. 5. Possible 3.7 cm left ovarian cyst, almost certainly benign.. Afollow-up pelvic ultrasound in 12 months is recommended for evaluation Ordered By: LUDIN BLACKBURN Interpreted By: Philip Mccall MD, 04/26/2025 6:25 PM us Ludin Blackburn MD CT Final Resul t * USE ECHO 2D FU LTD W CON (04/26/2025 2:29 PM CDT) Anatomical Region Laterality Modality NA Echocardiogram 04/26/2025 1:52 PM CDT Narrative 04/26/2025 3:22 PM CDT Echocardiography Report Pat.Name: RENU WETZEL Pat.ID: [id number] .Date: 04/26/2025 Exam Time: 1:52:00 PM Study Type:ECHO WITH CARDIAC DOPPLER COMP Height: 67 in Weight: 144 lb BSA: 1.76 m2 Age: 10 1970,54Y Sex: F BP: 138/98 HR: 70 bpm Sonogrphr: Leatha Dougherty RDCS Room: [facility] History / Clinical:NSTEMI Procedures: 2D, M-mode, Doppler, Color Flow, Definity was used to enhance endocardial definition. The study quality is technically difficult. Limited Race: W ++++++++++++++++++++++++++++++++++++ SUMMARY: ++++++++++++++++++++++++++++++++++++ The left ventricular size is normal. The left ventricular systolic function is lower limits of normal. Estimated left ventricular ejection fraction is 50-55%. Moderate anteroseptal, base-mid inferoseptal hypokinesis. Mild mid-anterolateral hypokinesis. The right ventricular size is normal. Right ventricular systolic function is normal. Mild aortic regurgitation. Mild tricuspid regurgitation. ++++++++++++++++++++++++++++++++++++ FINDINGS: ++++++++++++++++++++++++++++++++++++ LV: The left ventricular size is normal. The left ventricular systolic function is lower limits of normal. Estimated left ventricular ejection fraction is 50-55%. No concentric left ventricular hypertrophy. WM: Moderate anteroseptal, base-mid inferoseptal hypokinesis. Mild mid-anterolateral hypokinesis. RV: The right ventricular size is normal. Right ventricular systolic function is normal. IVS: No evidence of ventricular septal defect. LA: The left atrial volume is normal ( less than 34 ml/M2). RA: Right atrial size is normal. IAS: Atrial septum appears intact. RAMIRO: Small pericardial effusion, without tamponade physiology. AO: Normal aortic root. SVn: Inferior vena cava is normal. Inferior vena cava shows >50% collapse with respiration consistent with normal right atrial pressure. AV: The aortic valve is trileaflet. No evidence of aortic valve stenosis. Mild aortic regurgitation. MV: Trace mitral regurgitation. PV: Pulmonic valve not well visualized. TV: Mild tricuspid regurgitation. ++++++++++++++++++++++++++++++++++++ MEASUREMENTS: ++++++++++++++++++++++++++++++++++++ DOPPLER LVOT LVOTpkPG 4 mmHg LVOTmnPG 3 mmHg LVOTpkVel 106 cm/s (70-110)+ LVOT SV 57 ml LVOT TVI 18.3 cm Right Atrium RA Press 3 mmHg Ocampo's Disk 20 AV Forward Flow AV TVI 22.5 cm AV pkPG 6 mmHg AV pkVel 122 cm/s (100-170)+ Area (TVI) 2.55 cm2 (3-5)* AV mnPG 3 mmHg Area (Dong) 2.73 cm2 (3-5)* AV Regurg Flow AV pkVel 365 cm/s AV P1/2t 699 msec AV pkPG 53 mmHg MV Forward Flow MV DeTm 190 msec MV E/A 0.8 MVA P1/2t 3.93 cm2 (4-6)* MV pkE 59.2 cm/s (60-130)* MV P1/2t 56 msec (30-60)+ MV pkA 78.1 cm/s TV Regurg Flow TV pkPG 26 mmHg TV pkVel 257 cm/s (30-70)* Right Ventricle RVsys P 29 mmHg Aortic Valve Aortic Valve Ar 1.45 Aortic Valve Ve 0.87 AV DI Value 0.81 2D Left Ventricle LVIDd 4.91 cm (3.6-5.2) LV ESV 72.7 ml LVIDs 3.64 cm (2.3-3.9) LV ESV 57.5 ml LngAxd 7.27 cm LVESV BP 65.8 ml LngAxd 7.37 cm LV EF 44.9 % LV EDV 132 ml LV EF 50.4 % LV EDV 116 ml LV EF BP 46.9 % LVEDV BP 124 ml LV SV 59.3 ml LngAxs 5.88 cm LV SV 58.5 ml LngAxs 6.1 cm LV SV BP 58.2 ml LVPW LVPWd 0.728 cm Right Ventricle RVIDd 2.44 cm (2.6-4.3)* Right Ventricle 19.1 mm Right Ventricle 31.1 mm Right and Left 0.497 Major Mimbres 63.3 mm Ventricular Septum IVSd 0.978 cm Left Atrium LA a-p 2.8 cm (2.8-3.4) LA VOLBP 30.1 ml Aorta Ao Rtd 2.8 cm LVOT LVOT 2 cm LVOTArea 3.14 cm2 Ratios IVS Inferior vena cava IVC Diam 13.8 mm LA Biplane LAVol I BP 17.1 ml/m2 RA Single Plane Right Atrium MO 7.71 mm Right Atrium Sy 15.5 ml Right Atrium Sy 40 mm Right Atrium Sy 8.8 ml/m2 Right Atrium Sy 8.52 cm2 MMODE TA Tricuspid Annul 22.2 mm <Electronic Signature> 04/26/2025 03:22 PM Neeraj Johnston M.D. Procedure Note Neeraj Johnston MD - 04/26/2025 Echocardiography Report Pat.Name: RENU WETZEL Pat.ID: [id number] .Date: 04/26/2025 Exam Time: 1:52:00 PM Study Type:ECHO WITH CARDIAC DOPPLER COMP Height: 67 in Weight: 144 lb BSA: 1.76 m2 Age: 10 1970,54Y Sex: F BP: 138/98 HR: 70 bpm Sonogrphr: Leatha Dougherty [facility] Room: [facility] History / Clinical:NSTEMI Procedures: 2D, M-mode, Doppler, Color Flow, Definity was used to enhance endocardial definition. The study quality is technically difficult. Limited Race: W ++++++++++++++++++++++++++++++++++++ SUMMARY: ++++++++++++++++++++++++++++++++++++ The left ventricular size is normal. The left ventricular systolic function is lower limits of normal. Estimated left ventricular ejection fraction is 50-55%. Moderate anteroseptal, base-mid inferoseptal hypokinesis. Mild mid-anterolateral hypokinesis. The right ventricular size is normal. Right ventricular systolic function is normal. Mild aortic regurgitation. Mild tricuspid regurgitation. ++++++++++++++++++++++++++++++++++++ FINDINGS: ++++++++++++++++++++++++++++++++++++ LV: The left ventricular size is normal. The left ventricular systolic function is lower limits of normal. Estimated left ventricular ejection fraction is 50-55%. No concentric left ventricular hypertrophy. WM: Moderate anteroseptal, base-mid inferoseptal hypokinesis. Mild mid-anterolateral hypokinesis. RV: The right ventricular size is normal. Right ventricular systolic function is normal. IVS: No evidence of ventricular septal defect. LA: The left atrial volume is normal ( less than 34 ml/M2). RA: Right atrial size is normal. IAS: Atrial septum appears intact. RAMIRO: Small pericardial effusion, without tamponade physiology. AO: Normal aortic root. SVn: Inferior vena cava is normal. Inferior vena cava shows >50% collapse with respiration consistent with normal right atrial pressure. AV: The aortic valve is trileaflet. No evidence of aortic valve stenosis. Mild aortic regurgitation. MV: Trace mitral regurgitation. PV: Pulmonic valve not well visualized. TV: Mild tricuspid regurgitation. ++++++++++++++++++++++++++++++++++++ MEASUREMENTS: ++++++++++++++++++++++++++++++++++++ DOPPLER LVOT LVOTpkPG 4 mmHg LVOTmnPG 3 mmHg LVOTpkVel 106 cm/s (70-110)+ LVOT SV 57 ml LVOT TVI 18.3 cm Right Atrium RA Press 3 mmHg Ocampo's Disk 20 AV Forward Flow AV TVI 22.5 cm AV pkPG 6 mmHg AV pkVel 122 cm/s (100-170)+ Area (TVI) 2.55 cm2 (3-5)* AV mnPG 3 mmHg Area (Dong) 2.73 cm2 (3-5)* AV Regurg Flow AV pkVel 365 cm/s AV P1/2t 699 msec AV pkPG 53 mmHg MV Forward Flow MV DeTm 190 msec MV E/A 0.8 MVA P1/2t 3.93 cm2 (4-6)* MV pkE 59.2 cm/s (60-130)* MV P1/2t 56 msec (30-60)+ MV pkA 78.1 cm/s TV Regurg Flow TV pkPG 26 mmHg TV pkVel 257 cm/s (30-70)* Right Ventricle RVsys P 29 mmHg Aortic Valve Aortic Valve Ar 1.45 Aortic Valve Ve 0.87 AV DI Value 0.81 2D Left Ventricle LVIDd 4.91 cm (3.6-5.2) LV ESV 72.7 ml LVIDs 3.64 cm (2.3-3.9) LV ESV 57.5 ml LngAxd 7.27 cm LVESV BP 65.8 ml LngAxd 7.37 cm LV EF 44.9 % LV EDV 132 ml LV EF 50.4 % LV EDV 116 ml LV EF BP 46.9 % LVEDV BP 124 ml LV SV 59.3 ml LngAxs 5.88 cm LV SV 58.5 ml LngAxs 6.1 cm LV SV BP 58.2 ml LVPW LVPWd 0.728 cm Right Ventricle RVIDd 2.44 cm (2.6-4.3)* Right Ventricle 19.1 mm Right Ventricle 31.1 mm Right and Left 0.497 Major Mimbres 63.3 mm Ventricular Septum IVSd 0.978 cm Left Atrium LA a-p 2.8 cm (2.8-3.4) LA VOLBP 30.1 ml Aorta Ao Rtd 2.8 cm LVOT LVOT 2 cm LVOTArea 3.14 cm2 Ratios IVS Inferior vena cava IVC Diam 13.8 mm LA Biplane LAVol I BP 17.1 ml/m2 RA Single Plane Right Atrium MO 7.71 mm Right Atrium Sy 15.5 ml Right Atrium Sy 40 mm Right Atrium Sy 8.8 ml/m2 Right Atrium Sy 8.52 cm2 MMODE TA Tricuspid Annul 22.2 mm <Electronic Signature> 04/26/2025 03:22 PM Neeraj Johnston M.D. us Ludin Blackburn MD ECHO Final Resul t * [facility] POSS (04/26/2025 10:26 AM CDT) Anatomical Region Laterality Modality Cardiac Mat Making Machine Tender 04/26/2025 9:30 AM CDT us Daja R Osei PATTERN CHECKER [employer] PROFESSOR Final Result * (ABNORMAL) POCT ACTIVATED CLOTTING TIME - ISTAT DOCKED DEVICE (04/26/2025 10:12 AM CDT) ACTIVATED CLOTTING TIME (ACT) 141(H) 74 - 125 SEC 04/26/2025 2:01 PM CDT [facility] PROGRAM DIRECTOR CODE [id number] 04/26/2025 2:01 PM CDT [facility] 04/26/2025 10:1 2 AM CDT Adenike León MD POCT ORDERABLES - DEVICE Final Result Performing Organization Address [facility]/ZIP Co de Phone Number [facility] [address] [place] [phone], * URINE BACTERIA CULTURE (04/26/2025 9:10 AM CDT) SPEC DESCRIPTION URINE, UNSPECIFIED 04/26/2025 9:28 AM CDT [facility] SPECIAL REQUESTS NO SPECIAL REQUEST 04/26/2025 9:28 AM CDT [facility] CULTURE RESULT POLYMICROBIAL GROWTH CONSISTENT WITH NORMAL GENITAL CLAUDY. SUSCEPTIBILITIES NOT ROUTINELY PERFORMED. 04/27/2025 9:12 AM CDT [facility] URINE SPECIMEN / Unknown 04/26/2025 9:10 AM CDT 04/26/2025 9:36 AM CDT Ludin Blackburn MD MICROBIOLOGY - GENERAL ORDE RABLES Final Result Performing Organization Address City/[facility]/ZIP Co de Phone Number [facility] [address] [place] [phone], * (ABNORMAL) HEPARIN, ANTI XA, UFH (04/26/2025 6:05 AM CDT) Only the most recent of2 resultswithin the time period is included. HEPARIN ANTI XA UFH <0.04(L) 0.30 - 0.70 IU/ML 04/26/2025 7:16 AM CDT [facility] Comment: UFH Therapeutic Anti Xa Ranges: Medical Therapeutic Range: 0.30 - 0.70 IU/mL Cardiac Therapeutic Range: 0.30 - 0.50 IU/mL Neuro Therapeutic Range: 0.20 - 0.40 IU/mL 04/26/2025 6:05 AM CDT us Ludin Blackburn MD LABORATORY Final Resul t Performing Organization Address City/[facility] [[email or web address]] Co de Phone Number [facility] [address] [place] [address], [place] [phone] * HEMOGLOBIN, GLYCATED (04/26/2025 6:05 AM CDT) HGB A1C 4.5 <5.7 % 04/26/2025 10:33 AM CDT [facility] Comment: ADA GUIDELINES 2010 5.7 TO 6.4% INCREASED RISK OF DIABETES > OR = 6.5% CONSISTENT WITH DIABETES ESTIMATED AVG GLUCOSE 82 mg/dL 04/26/2025 10:33 AM CDT [facility] 04/26/2025 6:05 AM CDT us Ludin Blackburn MD LABORATORY Final Resul t [facility] [address] [place] [address], [place] [phone] * PROTIME/INR, VENOUS (04/26/2025 6:05 AM CDT) Only the most recent of2 resultswithin the time period is included. PROTIME 11.4 10.2 - 12.9 SEC 04/26/2025 7:16 AM CDT [facility] INR 1.0 04/26/2025 7:16 AM CDT [facility] Comment: Recommended INR Therapeutic Goals: 2.0-3.0 Routine Therapy 2.5-3.5 Mechanical Prosthetic Valves (High Risk) 04/26/2025 6:05 AM CDT Milly Hernandez MD LABORATORY Final Re sult [facility] [address] [place] [address], [place] [phone] * LIPID PANEL (04/26/2025 6:05 AM CDT) Pathologist [facility] CHOLESTEROL 132 <200 MG/DL 04/26/2025 7:03 AM CDT [facility] TRIGLYCERIDES 79 <150 MG/DL 04/26/2025 7:03 AM T [facility] HDL 72 >40.0 MG/DL 04/26/2025 7:03 AM CDT [facility] LDL (CALCULATED) 44 <100 MG/DL 04/26/20 25 7:03 AM T [facility] Comment:CALCULATED USING THE FRIEDEWALD EQUATION NON HDL CHOLESTEROL 60 <130 MG/DL 04/26 7:03 AM CDT [facility] CHOL/HDL RATIO 1.8 0.0 - 4.5 04/26/2025 7:03 AM T [facility] VLDL CALCULATION 16 5 - 55 MG/DL 04/26/2025 7:03 AM CDT [facility] LIPID INTERPRETATION 04/26/2025 7:03 AM CDT [facility] Comment: NIH CONCENSUS REPORT RECOMMENDATIONS: ADULT CHILD LOW RISK: CHOLESTEROL <200 <170 TRIGLYCERIDE <150 --- HDL >=60 --- LDL <100 <110 BORDERLINE: CHOLESTEROL 200-239 170-199 TRIGLYCERIDE 150-199 --- HDL 40-59 --- LDL 100-159 110-129 HIGH RISK: CHOLESTEROL >=240 >=200 TRIGLYCERIDE >=200 --- HDL <40 --- LDL >=160 >=130 04/26/2025 6:05 AM CDT Ludin Blackburn MD LABORATORY Final Resul t Performing Organization Address City/[facility]/ZIP Co de Phone Number [facility] [address] [place] [address], [place] [phone] * (ABNORMAL) TROPONIN, QUANT (04/26/2025 6:05 AM CDT) Only the most recent of3 resultswithin the time period is included. TROPONIN I HIGH SENSITIVITY 1,089(HH) <54 ng/L 04/26/2025 7:12 AM CDT [facility] Comment: NOT CALLED PER CRITICAL VALUE POLICY HIGH DOSES OF BIOTIN, TROPONIN-SPECIFIC AUTOANTIBODIES, AND ANTIBODY THERAPY CONTAINING HAMA MAY INTERFERE WITH THIS TEST RESULT. CORRELATION TO CLINICAL HISTORY AND PRESENTATION RECOMMENDED. 04/26/2025 6:05 AM CDT Ludin Blackburn MD LABORATORY Final Resul t [facility] [address] [place] [address], [place] [phone] * (ABNORMAL) THYROID STIM HORMONE, TSH (04/26/2025 6:05 AM CDT) TSH 0.107(L) 0.358 - 3.74 uIU/ML 04/26/2025 7:12 AM CDT [facility] Comment: HIGH DOSES OF BIOTIN MAY INTERFERE WITH THIS TEST RESULT. CORRELATION TO CLINICAL HISTORY AND PRESENTATION RECOMMENDED. 04/26/2025 6:05 AM CDT Ludin Blackburn MD LABORATORY Final Resul t Performing Organization Address City/[facility]/ZIP Co de Phone Number [facility] [address] [place] [address], [place] [phone] * MAGNESIUM (04/26/2025 6:05 AM CDT) MAGNESIUM 1.8 1.8 - 2.4 MG/DL 04/26/2025 7:12 AM CDT [facility] 04/26/2025 6:05 AM CDT Ludin Blackburn MD LABORATORY Final Resul t Performing Organization Address [facility] [[email or web address]] Co de Phone Number [facility] [address] [place] [address], [place] [phone] * (ABNORMAL) URINALYSIS (04/25/2025 9:13 PM CDT) SPECIMEN TYPE URINE CLEAN CATCH 04/25/2025 9:13 PM CDT [facility] COLOR (U) YELLOW 04/25/2025 9:36 PM CDT [facility] TRANSPARENCY CLEAR 04/25/2025 9:36 PM CDT [facility] SPECIFIC GRAVITY (U) 1.048(H) 1.001 - 1.030 04/25/2025 9:36 PM CDT [facility] U PH 6.0 5.0 - 9.0 04/25/2025 9:36 PM CDT [facility] LEUKOCYTES (U) 25(A) NEGATIVE 04/25/2025 9:36 PM CDT [facility] NITRITES NEGATIVE NEGATIVE 04/25/2025 9:36 PM CDT [facility] PROTEIN RANDOM (U) 100(H) <30 MG/DL 04/25/2025 9:36 PM CDT [facility] GLUCOSE (U) NORMAL NORMAL MG/DL 04/25/2025 9:36 PM CDT [facility] KETONES MG/DL (U) 100(A) NEGATIVE MG/DL 04/25/2025 9:36 PM CDT [facility] UROBILINOGEN 3.0(A) NORMAL MG/DL 04/25/2025 9:36 PM CDT [facility] BILIRUBIN (U) 0.5(A) NEGATIVE MG/DL 04/25/2025 9:36 PM CDT [facility] BLOOD (U) NEGATIVE NEGATIVE 04/25/2025 9:36 PM CDT [facility] MUCUS MANY /LPF 04/25/2025 9:36 PM CDT [facility] WBC/HPF 16(H) <6 /HPF 04/25/2025 9:36 PM CDT [facility] RBC/HPF 6(H) <6 /HPF 04/25/2025 9:36 PM CDT [facility] BACTERIA (U) RARE(A) NONE /HPF 04/25/2025 9:36 PM CDT [facility] SQUAMOUS EPITHELIALS RARE /HPF 04/25/2025 9:36 PM CDT [facility] URINE SPECIMEN OBTAINED BY CLEAN CATCH PROCEDURE / Unknown 04/25/2025 9:13 PM CDT us Lakeisha Kitchen PA-C URINE ORDERABLES Final Resu lt Performing Organization Address City/[facility]/ZIP Co de Phone Number [facility] [address] [place] [address], * POCT glucose (04/25/2025 8:48 PM CDT) Only the most recent of2 resultswithin the time period is included. GLUCOSE POC 93 70 - 99 mg/dL 04/25/2025 8:51 PM CDT [facility] 04/25/2025 8:48 PM CDT us Attending Physician Emergency MD POCT ORDERABLES - DEVICE Final Result Performing Organization Address City/[facility] [[email or web address]] Co de Phone Number [facility] [address] [place] [phone], * ECG 12 lead (04/25/2025 8:46 PM CDT) 04/25/2025 8:46 PM CDT Narrative [facility] RAD - 04/26/2025 8:59 AM CDT [address] Test Date: 2025-04-25 Pat Name: RENU WETZEL Department: 41 Room: [facility] Gender: Female Stenocaptioner: [id number] : 1970 Requested By: LAKEISHA KITCHEN Order Number: [id number] Reading MD: Milly Hernandez Measurements Intervals Mimbres Rate: 89 P: 77 RI: 132 QRS: -30 QRSD: 106 T: 91 QT: 390 QTc: 476 Interpretive Statements SINUS RHYTHM Borderline ST Depression POSSIBLE RIGHT ATRIAL ENLARGEMENT [0.25mV P-WAVE] BORDERLINE LEFT AXIS DEVIATION [QRS AXIS < -20] Compared to ECG 05/18/2024 15:09:[address] depression Procedure Note Milly Hernandez MD - 04/26/[address] Test Date: 2025-04-25 Pat Name: RENU WETZEL Department: 41 Room: 8 Gender: Female Stenocaptioner: [id number] : 1970 Requested By: LAKEISHA KITCHEN Order Number: [id number] Reading MD: Milly Hernandez Measurements Intervals Mimbres Rate: 89 P: 77 RI: 132 QRS: -30 QRSD: 106 T: 91 QT: 390 QTc: 476 Interpretive Statements SINUS RHYTHM Borderline ST Depression POSSIBLE RIGHT ATRIAL ENLARGEMENT [0.25mV P-WAVE] BORDERLINE LEFT AXIS DEVIATION [QRS AXIS < -20] Compared to ECG 05/18/2024 15:09:[address] depression us Lakeisha Kitchen PA-C ECG ORDERABLES Final Resul t [facility] ([facility] RAD * (ABNORMAL) COMPREHENSIVE METABOLIC PANEL (04/25/2025 6:31 PM CDT) GLUCOSE 86 70 - 99 MG/DL 04/25/2025 9:22 PM CDT [facility] BUN 14 7 - 18 MG/DL 04/25/2025 9:22 PM CDT [facility] CREATININE S/P/B 0.85 0.55 - 1.02 MG/DL 04/25/2025 9:22 PM CDT [facility] SODIUM S/P/B 135(L) 136 - 145 MMOL/L 04/25/2025 9:22 PM CDT [facility] POTASSIUM S/P/B 3.6 3.5 - 5.1 MMOL/L 04/25/2025 9:22 PM CDT [facility] CHLORIDE S/P/B 103 97 - 115 MMOL/L 04/25/2025 9:22 PM CDT [facility] CO2 19.7(L) 21 - 32 MMOL/L 04/25/2025 9:22 PM CDT [facility] CALCIUM S/P/B 9.4 8.5 - 10.1 MG/DL 04/25/2025 9:22 PM CDT [facility] BILIRUBIN TOTAL S/P/B 1.1 0.2 - 1.2 MG/DL 04/25/2025 9:22 PM CDT [facility] Comment: THIS ASSAY IS NOT RECOMMENDED FOR PATIENTS UNDERGOING TREATMENT WITH ELTROMBOPAG DUE TO THE POTENTIAL FOR FALSELY ELEVATED RESULTS. TOTAL PROTEIN S/P/B 6.9 6.4 - 8.2 G/DL 04/25/2025 9:22 PM CDT [facility] ALBUMIN S/P/B 3.4 3.4 - 5.0 G/DL 04/25/2025 9:22 PM CDT [facility] AST 20 15 - 37 U/L 04/25/2025 9:22 PM CDT [facility] ALT 25 14 - 55 U/L 04/25/2025 9:22 PM CDT [facility] ALKALINE PHOSPHATASE S/P/B 74 50 - 136 U/L 04/25/2025 9:22 PM T [facility] ANION GAP 12.3(H) 2 - 10 MMOL/L 04/25/2025 9:22 PM CDT [facility] BUN CREATININE RATIO 16.5 6 - 26 04/25/2025 9:22 PM CDT [facility] A/G RATIO 1.0 1.0 - 2.0 RATIO 04/25/2025 9:22 PM CDT [facility] GFR ESTIMATE 81(L) >90 ML/MIN/1.7 3 M2 04/25/2025 9:22 PM CDT [facility] Comment: NOTE: eGFR is not calculated for patients <18 years of age or gender unknown. This is an estimated GFR calculation using the new CKD EPI creatinine equation without race and so does not require a correction factor for race. This estimated GFR should not be used for calculating drug doses. 04/25/2025 6:31 PM CDT Lakeisha Kitchen PA-C LABORATORY Final Resul t Performing Organization Address [facility] [[email or web address]] Co de Phone Number [facility] [address] [place] [address], [place] [phone] * LIPASE (04/25/2025 6:31 PM CDT) LIPASE 23 13 - 75 UNITS/L 04/25/2025 9:22 PM CDT [facility] 04/25/2025 6:31 PM CDT Lakeisha Kitchen PA-C LABORATORY Final Resul t Performing Organization Address [facility] de Phone Number [facility] [address] [place] [address], [place] [phone] * HEP C SCANNED ORDERS (07/04/2024) [facility] Scanned SCANNING Final Resu lt Performing Organization Address City/[facility] [[email or web address]] Co de Phone Number [facility] * MG SCREENING W ARRON JESS DIGI (04/23/2022 2:29 PM CDT) Anatomical Region Laterality Modality Breast Bilateral Mammography 04/23/2022 3:02 PM CDT Impressions 04/23/2022 3:07 PM CDT IMPRESSION: 1. No mammographic evidence of malignancy. Recommend annual mammogram. 2. BI-RADS Category 2: Benign. 3. TISSUE TYPE: Category B - There are areas of scattered fibroglandular density. A) A negative report should not delay a biopsy if a dominant or clinically suspicious mass is present. B) Adenosis and dense breasts may obscure an underlying neoplasm. C) Study interpreted with computer aided detection. Ordered By: ELENO BRANDT Interpreted By: David Samuels, 04/23/2022 3:02 PM Narrative 04/23/2022 3:07 PM CDT IMAGING STUDIES: MG SCREENING W ARRON JESS DIGI DATE: 04/23/2022 2:16 PM HISTORY: screening 51-year-old female for screening study to reestablish baseline. No reported family history of breast cancer. COMPARISON: None. Patient reports prior mammograms greater than 10 years ago. TECHNIQUE: Bilateral digital screening mammogram with CAD. Standard CC and MLO views. Additional left CC view. 2-D imaging and 3-D tomography. DISCUSSION: Scattered fibroglandular tissue with mild nodularity. Benign calcifications bilaterally. No abnormality marked by CAD. No mammographically suspicious mass, microcalcification, or architectural distortion. Eleno Brandt MD MAMMO Final Result from Last 3 Months or Most Recently Relevant to Health Maintenance Insurance Advance Directives * Full Code (Latest Code Status on File) Date Activated Date Inactivated Comments 04/26/2025 10:27 AM 04/27/2025 12:50 PM * Full Code Date Activated Date Inactivated Comments 04/25/2025 10:29 PM 04/26/2025 10:27 AM Care Teams Insurance Agency Manager Relationship Specialty Start Date End Date Cyndee Oliver APNP [address] [place] [address] PCP - General NURSE PRACTITIONER 08/30/24
--- OUTSIDE RECORDS SUMMARY | 2025-05-06 17:30 | XMS_ITS | Encounter Summary ---
Author Organization [facility] Address [address] [place] [address] Care Team Providers Care Payroll Supervisor Name Role Phone Eleno Brandt MD Primary Care Provider [phone] Cyndee Oliver Primary Care Provider [phone] Encounter Details Date Type Department Care Team (Late Contact Info) Description 08/10/2024 [employer] Message Enc [facility] Multispecialty Care - [address] [place] [address] [facility] Provider results Social History Tobacco Use Types Packs/Day Years [...] Sex Assigned at Female 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 [facility] [address] [place], [place] [address] documented as of this encounter Visit Diagnoses Not on filedocumented in this encounter Additional Health Concerns Infection Onset Date Last Indicated Resolved Time COVID-19 Rule Out 08/30/2024 08/30/2024 08/30/2024 3:04 PM [employer] COVID-19 Confirmed 08/30/2024 08/30/2024 12:32 AM [employer] Assessment Noted Time PHQ-9 Depression Total Score: 5 05/31/20 24 10:49 AM [employer] documented as of this encounter Care Teams Payroll Supervisor Relationship Specialty Start Date End Date Eleno Brandt MD [address] [address] PCP - General INTERNAL MEDICINE 01/19/22 08/29/24 Cyndee Oliver APNP [address] [place] [address] PCP - General NURSE PRACTITIONER 08/30/24 documented as of this encounter
--- OUTSIDE RECORDS SUMMARY | 2025-05-06 17:30 | XMS_ITS | Encounter Summary ---
Author Organization [facility] Address [address] [place] [address] Care Team Providers Care Power Shear Operator Name Role Phone Eleno Brandt MD Primary Care Provider [phone] Cyndee Oliver Primary Care Provider [phone] Encounter Details Date Type Department Care Team (Latest Contact Info) Description 06/01/2022 MyChart Message Enc [facility] Medical Group Multispecialty Care - [address] [address] [address] [place] [address] Eleno Brandt MD [address] [place] [address] [address] [place] [address] Schedule your low dose CT scan Social History Tobacco Use Types Packs/Day Years Used Date Smoking Tobacco: Every Day Cigarettes 0.3 35 Smokeless Tobacco: Never Comments:counseled by Dr Humaira queen Alcohol Use Standard Drinks/Week Comments Yes 0 (1 standard drink = 0.6 oz pur e alcohol) Socially PHQ-2 Answer Date Recorded PHQ-2 Score - If the patient scores above 3, please move on to questions 3-9 1 04/22/2022 Comments No Sex and Gender Information Value Date Recorded Sex Assigned at Female 08/09/2024 9:28 AM ENGLISH TUTOR Legal Sex Female 8:00 PM CDT Gender Identity Not on file Sexual Orientation Not on file documented as of this encounter Plan of Treatment Upcoming Encounters Date Type Department Care Team (Late st Contact Info) Description 05/22/2025 9:45 AM CDT Office Visit Arnie [place] THREE [facility] [address] [place], [place] [address] Umm Peterson FNP 3 [facility] [address] [place] [address] 05/23/2025 12:30 PM CDT Appointment [facility] Cardiopulmonary Rehab [address] [place] [address] Carlos Eduardo Mora MD Three [facility]. [facility] [address] [place], [place] [id number] documented as of this encounter Visit Diagnoses Not on filedocumented in this encounter Additional Health Concerns Infection Onset Date Last Indicated Resolved Time COVID-19 Rule Out 08/10/2022 08/10/2022 08/10/2022 1:03 PM ENGLISH TUTOR COVID-19 Rule Out 06/05/2024 06/05/2024 06/05/2024 6:55 AM ENGLISH TUTOR COVID-19 Confirmed 06/05/2024 06/05/2024 12:33 AM ENGLISH TUTOR COVID-19 Rule Out 08/30/2024 08/30/2024 08/30/2024 3:04 PM ENGLISH TUTOR COVID-19 Confirmed 08/30/2024 08/30/2024 12:32 AM ENGLISH TUTOR Assessment Noted Time PHQ-9 Depression Total Score: 9 01/20/20 22 2:56 PM CDT documented as of this encounter Care Teams Power Shear Operator Relationship Specialty Start Date End Date Eleno Brandt MD [address] [address] PCP - General INTERNAL MEDICINE 01/19/22 08/29/24 Cyndee Oliver APNP [address] [place] [address] PCP - General NURSE PRACTITIONER 2/5/25 documented as of this encounter
--- OUTSIDE RECORDS SUMMARY | 2025-05-06 17:31 | XMS_ITS | Clinical Summary ---
Author [place] [facility] [place] [address] [facility] Address [address] [place] [address] Care Team Providers Care Associate Doctor Name Role Phone Berry Morrow RN, Sarah Jane NP Primary Care Provider +1- Allergies No known active allergies Medications multivitamin tablet tablet 0 0 02/08/2014 Active b complex vitamins tablet one daily 0 0 06/26/2014 Active potassium gluconate 550 mg (90 mg) tablet one daily 0 0 06/26/2014 Active calcium carbonate-vitam in D3 (CALCIUM 600 + D,3,) 600 mg calcium- 200 unit capsule one daily 0 0 06/26/2014 Active levothyroxine (SYNTHROID) 25 mcg tablet TAKE 1 TABLET DAILY 90 tablet 3 05/23/2020 Active cyclobenzaprine (FLEXERIL) 10 mg tablet TAKE 1 TABLET THREE TIMES A DAY 270 tablet 3 11/26/2020 Active HYDROcodone-cailin taminophen (NORCO) 5-325 mg per tabletIndicatio ns:Pain Take 1 tablet by mouth every 6 (six) hours as needed for pain 8 tablet 02/22/2021 Active prochlorperazin e (COMPAZINE) 10 mg tablet Take 1 tablet (10 mg total) by mouth 2 (two) times a day as needed for nausea or vomiting 10 tablet 02/22/2021 Active buPROPion SR (ZYBAN) 150 mg 12 hr tabletIndicatio ns:Mixed anxiety depressive disorder TAKE 1 TABLET TWICE A DAY 180 tablet 3 07/29/2021 Active levothyroxine (SYNTHROID) 175 mcg tablet TAKE 1 TABLET DAILY 90 tablet 3 07/30/2021 Active naloxone (NARCAN) 4 mg/actuation spray,non-aeros ol SPRAY 1 SPRAY INTO ONE NOSTRIL DIRECTED FOR OPIOID REVERSAL. MAY REPEAT IN OTHER NOSTRIL EVERY 2-3 MINUTES IF NEEDED 08/22/2020 Active HYDROcodone-cailin taminophen (NORCO) 10-325 mg per tablet Take 1 tablet by mouth every 6 (six) hours 07/17/2021 Active cloNIDine (CATAPRES) 0.2 mg tabletIndicatio ns:insomnia Take 1 tablet (0.2 mg total) by mouth nightly 90 tablet 3 09/24/2021 Active hydrOXYzine (ATARAX) 25 mg tabletIndicatio ns:Primary insomnia TAKE 1 TABLET THREE TIMES A DAY 90 tablet 11 10/10/2021 Active gabapentin (NEURONTIN) 300 mg capsuleIndicati ons:Neuropathic Pain Take 1 capsule (300 mg total) by mouth 2 (two) times a day 180 capsule 3 11/04/2021 Active adalimumab (HUMIRA, CF, SYRINGE) 40 mg/0.4 mL syringe kit Inject 0.4 mL (40 mg total) under the skin every 14 (fourteen) days pen 2 each 5 01/28/2022 Active Active Problems Problem Noted Date Diagnosed Date Mild episode of recurrent major depressive disor haritha 09/05/2021 Assessment & Plan (09/06/2021 1:49 PM REWEAVER): Doing well on bupropion. Reports good control of depression w/current regimen. No changes to be made at this time. Reviewed med Ses & scheduling. Reviewed red flags. Class 1 obesity due to exces s calories without serious comorbidity with body mass index (BMI) of 34.0 to 34.9 in adult 09/05/2021 Assessment & Plan (09/06/2021 1:49 PM REWEAVER): Reviewed need to lose weight, reviewed health benefits. Reviewed recommendations for daily intake & activity 20-30 minutes/day. Discussed healthy diet and importance of regular physical activity. Encounter for screening mammogram for breast can cer 09/05/2021 Assessment & Plan (09/06/2021 1:49 PM REWEAVER): Mammogram order given; will call with results when received. Encouraged to perform monthly SBE. Encounter for screening for lipid disorder 01/21 Assessment & Plan (09/06/2021 1:45 PM REWEAVER): 01/22/20 DY=977 HDL=53 MK=786 LDL=79 TC/HDL=3.3 Glu=76 The 10-year ASCVD risk score (Santosserena COTE Jr., et al., 2013) is: 4.3% Values used to calculate the score: Age: 51 years Sex: Female Is Non- : No Diabetic: No Tobacco smoker: Yes Systolic Blood Pressure: 112 mmHg Is BP treated: No HDL Cholesterol: 40 mg/dL Total Cholesterol: 197 mg/dL Lipid panel ordered; will call w/results when received. Reviewed diet/exercise recommendations. Assessment & Plan (01/22/2020 10:28 AM CDT): 01/22/20 UE=045 HDL=53 EV=683 LDL=79 TC/HDL=3.3 Glu=76 To start fish oil bid. Watch carbs/sugar intake. Seropositive rheumatoid arthritis of multiple danyel ints 05/17/2019 Assessment & Plan (09/06/2021 1:44 PM REWEAVER): Has upcoming appt w/Dr Lindsey eHster 11/2021. Assessment & Plan (08/22/2020 10:59 PM REWEAVER): Discussed new Business Taxes Specialist as Dr Hill is retiring. Will contact rheum's that Dr Hill suggested. Improvement w/plaquenil & humira. Plaquenil refilled today. Reviewed med SE & scheduling. Had eye exam 02/2020. Assessment & Plan (10/30/2019 3:59 PM CDT): Followed by Dr Irina Hill for RA. Currently on plaquenil & MTX but pain continues. Assessment & Plan (07/17/2019 10:02 AM REWEAVER): Following w/Dr Blackwell for RA Next appt 08/2019. Put her on methotrexate as well as folic acid. Remains on plaquenil. Tobacco dependence due to cigarettes 03/28/2019 Assessment & Plan (09/06/2021 1:44 PM REWEAVER): Precontemplative. Encouraged complete smoking cessation. Discussed different types of medications & mnou-rcq-gtocbug aides to help with cessation. Assessment & Plan (08/22/2020 10:59 PM REWEAVER): Precontemplative. Encouraged complete smoking cessation. Discussed different types of medications & pxum-bll-wpsvovi aides to help with cessation. Assessment & Plan (04/15/2020 2:24 PM CDT): Precontemplative. Encouraged complete smoking cessation. Discussed different types of medications & ribd-qsw-notjfvq aides to help with cessation. Assessment & Plan (01/22/2020 10:27 AM CDT): Precontemplative. Encouraged complete smoking cessation. Discussed different types of medications & ofxu-srb-fggbvcj aides to help with cessation. Smoking cessation (Zyban): Initial: 150 mg once daily for 3 days; increase to 150 mg twice daily (maximum dose: 300 mg/day). Assessment & Plan (10/30/2019 3:58 PM CDT): Precontemplative. Encouraged complete smoking cessation. Discussed different types of medications & sofl-jsm-iftudal aides to help with cessation. Assessment & Plan (07/17/2019 10:07 AM REWEAVER): Precontemplative. Encouraged complete smoking cessation. Discussed different types of medications & cedu-pah-ssqzfbq aides to help with cessation. Assessment & Plan (04/28/2019 6:56 PM CDT): Precontemplative. Encouraged complete smoking cessation. Discussed different types of medications & xeyt-wlw-phchyxt aides to help with cessation. Assessment & Plan (03/28/2019 5:13 PM CDT): Precontemplative. Encouraged complete smoking cessation. Discussed different types of medications & klsd-jye-mgjwyps aides to help with cessation. Refused influenza vaccine 08/26/2018 Assessment & Plan (07/17/2019 10:06 AM REWEAVER): Discussed and the patient refuses immunization today. Educated regarding the need to vaccinate for personal protection and to limit the viruses in the community to protect those most vulnerable. Assessment & Plan (04/28/2019 6:56 PM CDT): Discussed and the patient refuses immunization today. Educated regarding the need to vaccinate for personal protection and to limit the viruses in the community to protect those most vulnerable. Vitamin D deficiency 05/08/2018 Assessment & Plan (09/06/2021 1:43 PM REWEAVER): Takes vitamin D The blood level will be checked today. Advise to get 10 min of sun exposure to the hands and face 2-3 days of the week to boost Vit D levels. Assessment & Plan (08/22/2020 11:00 PM REWEAVER): Takes vitamin D The blood level will be checked today. Advise to get 10 min of sun exposure to the hands and face 2-3 days of the week to boost Vit D levels. Assessment & Plan (10/30/2019 3:58 PM CDT): Vitamin D increased from 26 03/2019 to 49 08/2019. Will go back to otc vitamin D supplement 2000 international units daily. Will recheck in 3-6 mos. Advise to get 10 min of sun exposure to the hands and face 2-3 days of the week to boost Vit D levels. Assessment & Plan (03/28/2019 5:09 PM CDT): Takes vitamin D The blood level will be checked today. Advise to get 10 min of sun exposure to the hands and face 2-3 days of the week to boost Vit D levels. History of gastric bypass 10/29/2017 Assessment & Plan (09/06/2021 1:43 PM REWEAVER): Has not had routine labs drawn in 2 yrs. Labs ordered; aware to check her [employer] account for results & lab letter. Assessment & Plan (08/22/2020 10:56 PM REWEAVER): Labs ordered; will contact w/results. Aware to look in mychart. Assessment & Plan (10/30/2019 4:01 PM CDT): Has been taking vitamins/supplements as instructed by bariatric surgeon. Levels much improved when checked 09/21/19. Assessment & Plan (07/20/2019 10:27 AM REWEAVER): Did not have labs drawn 03/2019. Reordered. Will contact w/results once rec'd. Assessment & Plan (03/28/2019 5:09 PM CDT): Labs ordered; will contact w/results once rec'd. Chronic midline low back pain without sciatica 1 08/03/2016 Insomnia 06/27/2014 Overview (10/29/2016): Insomnia Assessment & Plan (09/06/2021 1:41 PM REWEAVER): Has tried multiple different medications for her insomnia. Does not want further BZD. Will trial clonidine 0.1mg qhs. Reviewed med SE & scheduling. Will stop med/call if no improvement. Reviewed good sleep hygiene: no electronics, cool/dark room, warm shower/tub prior to bedtime, no caffeine after 3-4p, no exercise 3hr prior to sleep. Assessment & Plan (08/22/2020 10:57 PM REWEAVER): Difficulty shutting off mind. Taking xanax 1-2mg qhs. Hydroxyzine sent to help w/sleep. Reviewed med SE & scheduling. Hypothyroidism 06/26/2014 Overview (10/29/2016): Hypothyroidism Assessment & Plan (09/06/2021 1:02 PM REWEAVER): Levothyroxine 200mcg daily. TSH/T4 ordered; will contact with results when received. Reviewed med SE & scheduling. Reviewed sxs hypo/hyperthyroidism. No changes at this time. Assessment & Plan (08/22/2020 10:56 PM REWEAVER): TSH/T4 ordered; will contact with results when received. Reviewed med SE & scheduling. Reviewed sxs hypo/hyperthyroidism. No changes at this time. Assessment & Plan (10/30/2019 4:00 PM CDT): TFTs WNL when checked 09/21/19. TSH/T4 ordered; will call w/results when rec'd. Reviewed med Ses & scheduling. Reviewed sxs hypo/hyperthyroidism. No changes at this time. Assessment & Plan (07/20/2019 10:26 AM REWEAVER): Did not have labs drawn 03/2019. Reordered. TSH/T4 ordered; will call w/results when rec'd. Reviewed med Ses & scheduling. Reviewed sxs hypo/hyperthyroidism. No changes at this time. Assessment & Plan (03/28/2019 5:08 PM CDT): TSH/T4 ordered; will call w/results when rec'd. Reviewed med Ses & scheduling. Reviewed sxs hypo/hyperthyroidism. No changes at this time. Generalized anxiety disorder 06/26/2014 Overview (10/29/2016): Generalized anxiety disorder Assessment & Plan (09/06/2021 1:41 PM REWEAVER): No longer taking xanax. Does not want further BZD. Doing well w/hydroxyzine prn. No changes at this time. Assessment & Plan (10/30/2019 4:01 PM CDT): Alprazolam last filled 10/20/19. Reports good control of anxiety w/current regimen. No changes to be made at this time. Reviewed med Ses & scheduling. Reviewed red flags. Assessment & Plan (07/17/2019 10:05 AM REWEAVER): Xanax last filled 06/30/19. Would like to go to 90 day mail order prescription at next fill; will contact me once it is due. Reports good control of anxiety w/current regimen. No changes to be made at this time. Reviewed med Ses & scheduling. Reviewed red flags. Assessment & Plan (04/28/2019 6:56 PM CDT): Reports good control of anxiety w/current regimen. No changes to be made at this time. Xanax 1mg refill sent. Reviewed med Ses & scheduling. Reviewed red flags. Resolved Problems Problem Noted Date Diagnosed Date Resolved Date Encounter for screening mamm ogram for malignant neoplasm of breast 08/22/2020 09/05/2021 Assessment & Plan (08/22/2020 10:56 PM REWEAVER): Mammogram order given; will call with results when received. Encouraged to perform monthly SBE. BMI 36.0-36.9,adult 08/22/2020 09/05/19 Assessment & Plan (08/22/2020 10:56 PM REWEAVER): Reviewed need to lose weight, reviewed health benefits. Reviewed recommendations for daily intake & activity 20-30 minutes/day. Discussed healthy diet and importance of regular physical activity. Need for influenza vaccination 04/15/2020 08/22/2020 Assessment & Plan (04/15/2020 2:01 PM CDT): Reviewed need to lose weight, reviewed health benefits. Reviewed recommendations for daily intake & activity 20-30 minutes/day. Discussed healthy diet and importance of regular physical activity. BMI 34.0-34.9,adult 04/15/2020 08/22/19 Assessment & Plan (04/15/2020 2:01 PM CDT): Flu vaccine given today. Discussed possible tenderness/redness at injection site. BMI 33.0-33.9,adult 01/22/2020 04/15/20 Assessment & Plan (01/22/2020 10:28 AM CDT): Reviewed need to lose weight, reviewed health benefits. Reviewed recommendations for daily intake & activity 20-30 minutes/day. Discussed healthy diet and importance of regular physical activity. Sedentary lifestyle & depression increasing at present. Stressed need for healthy intake & need to increase activity. BMI 32.0-32.9,adult 10/30/2019 01/22/20 Assessment & Plan (10/30/2019 4:02 PM CDT): Weight slowly trending upward. Discussed need to increase activity & watch intake. Reviewed need to lose weight, reviewed health benefits. Reviewed recommendations for daily intake & activity 20-30 minutes/day. BMI is acceptable for this patient. Encounters for administrative purpose 07/20/2019 10/30/2019 Assessment & Plan (07/20/2019 10:29 AM REWEAVER): Signatures for RMA to be reinstated. BMI 30.0-30.9,adult 07/17/2019 01/22/20 Assessment & Plan (07/20/2019 10:28 AM REWEAVER): Reviewed need to lose weight, reviewed health benefits. Reviewed recommendations for daily intake & activity 20-30 minutes/day. Discussed healthy diet and importance of regular physical activity. Encounter for screening for lipoid disorders 9 04/14/2020 Assessment & Plan (07/20/2019 10:28 AM REWEAVER): Did not have labs drawn 03/2019. Reordered. Lipid panel ordered; will call w/results when received. Reviewed diet/exercise recommendations. Low libido 04/28/2019 08/22/2020 Assessment & Plan (10/30/2019 4:00 PM CDT): Reports improvement in libido w/Kiel. Denies any SE from medications. Assessment & Plan (07/17/2019 10:07 AM REWEAVER): Improvement noted w/Kiel. No SE from medication. Pleased with improvement in libido. Assessment & Plan (04/28/2019 6:57 PM CDT): Addyi 100mg qhs sent. Reviewed med SE & scheduling. aware to not drink ETOH. Bilateral hand pain 03/28/2019 05/18/20 Assessment & Plan (04/28/2019 6:56 PM CDT): Has appt w/Dr Hill 05/10/19. No changes at this time. Assessment & Plan (03/28/2019 5:11 PM CDT): Diclofenac gel sent. Discussed difficulty getting into rheum. Agreeable to try any rheum in local area. Spoke w/postal sorting officer Shefali: she will place calls to Dr Hill, Dr Lori Hester, Dr Noyola and to see if any rheum at [facility] or [facility]. Shefali will f/u w/renu. Renu is aware. Mixed anxiety depressive disorder 06/26/2016 09/05/2021 Overview (10/29/2016): Anxiety and depression Assessment & Plan (04/15/2020 2:22 PM CDT): Doing well on bupropion. No changes at this time. Feels that things are improving. Better relationship w/ but working on it. Back in clinic at work & feels that this is helpful also (working at home was hard) To make f/u appt in 3-6 mos. Assessment & Plan (01/22/2020 10:26 AM CDT): wellbutrin 150mg bid sent. Reviewed med SE & scheduling. Discussed EAP counselor through her employer ([employer]). States that there is a program that she can call. Wanted her to go w/her but he refused. Stressed to Renu that she should go alone; to help herself. Discussed increasing activity also. Sitting/eating is making her more miserable. Denies thoughts of SI/HI on direct questioning. To make f/u appt in 6 weeks; sooner if needed. Cough 11/18/2015 07/20/2019 Overview (10/29/2016): Cough Fatigue 11/08/2015 11/25/2017 Overview (10/29/2016): Fatigue, unspecified type Depression 06/27/2014 09/05/2021 Overview (10/29/2016): Depression Menorrhagia 06/26/2014 09/06/2021 Overview (10/29/2016): Menorrhagia Appendicitis 12/29/2013 05/18/2019 Overview (10/29/2016): Appendicitis Morbid obesity 01/02/2013 05/18/2019 Immunizations Immunization Administration Dates Next Due Influenza, Quadrivalent, Spl it, Intramuscular 03/26/2015,03/26/2015 Influenza, Quadrivalent, Spl it, Preservative Free, Intramuscular 04/15/2020 Influenza, Trivalent, Recomb inant, Egg Free, Preservative Free, Antibiotic Free, IM (FLUBLOK) 05/25/2014 Influenza, Unspecified 04/25/2021,2019,07/17/2019(Defer red: Patient Refused),05/18/2019(Deferred: Patient Refused),04/28/2019(Deferred: Patient Refused),08/26/2018(Deferred: Patient Refused),08/26/2018(Deferred: Patient Refused),07/26/2018(Deferred: Patient Refused),07/26/2018(Deferred: Patient Refused),04/29/2018(Deferred: Patient Refused),04/29/2018(Deferred: Patient Refused),04/29/2018(Deferred: Patient Refused),11/25/2017(Deferred: Patient Refused),07/27/2017(Deferred: Patient Refused),07/26/2017(Deferred: Patient Refused),07/26/2017(Deferred: Patient Refused),07/26/2017(Deferred: Patient Refused) Moderna Sars-cov-2 Monovalen t Booster Vaccination .25 Ml dose (12+ YRS) 05/28/2021 Pfizer SARS-CoV-2 Monovalent Vaccination (12+ Yrs) PURPLE 11/23/2021,07/29/2020,07/12/2020 Surgical History Surgery Date Site/Laterality Comments TONSILLECTOMY Tonsillectomy TUBAL LIGATION tubal ligation TYMPANOSTOMY TUBE PLACEMENT ear tubes APPENDECTOMY Lap Appy GASTRIC BYPASS Gastric bypass TUBAL LIGATION Bilateral tubal ligation ENDOMETRIAL ABLATION Novasure ablation THYROIDECTOMY Thyroidectomy CHOLECYSTECTOMY Cholecystectomy APPENDECTOMY Appendectomy OTHER SURGICAL HISTORY 07/26/1986 - 07/25/1987 : OTHER SURGICAL HISTORY 07/26/1988 - 07/25/1989 : OTHER SURGICAL HISTORY 07/26/1988 - 07/25/1989 : OTHER SURGICAL HISTORY 07/26/1991 - 07/25/1992 : GASTRIC BYPASS Gastric Bypass TUBAL LIGATION Tubal ligation CHOLECYSTECTOMY Cholecystectomy APPENDECTOMY Appendectomy THYROIDECTOMY Thyroidectomy ENDOMETRIAL ABLATION 07/26/2009 - 07/25/2010 Uterine Ablation OTHER SURGICAL HISTORY 07/26/2014 - 07/25/2015 TLH, bilat. salpingectomy HYSTERECTOMY BARIATRIC SURGERY 06-27-13 Medical History Medical History Date Comments Hx Other Medical obesity; Commen ts: QI 02/08/2014 - Hx Other Medical neuropathy; Com ments: QI 02/08/2014 - Disorder of thyroid 1998 Thyroid dise ase; Comments: FRANCISCO 06/26/2014 -; Outcome: hypothyroidism Anxiety disorder 2012 Anxiety; Commen ts: FRANCISCO 06/26/2014 - Hx Other Medical ; Outc ome: 40W0D week 7lb(s) 14 oz Female Hx Other Medical ; Outc ome: 40W0D week 9lb(s) 4 oz Male Hx Other Medical ; Outc ome: 40W0D week 9lb(s) 7 oz Male Hx Other Medical ; Outc ome: 40W0D week 9lb(s) 12 oz Male Arthritis Obesity Menorrhagia Depression Insomnia Bulging lumbar disc L4 & L5 Autoimmune disease 2018 Rheumatoid arthritis (HCC) Family History Medical History Relation Name Comments Other Brother 2 Alive and well; Sleep apnea Brother 3 sleep apnea; Obesity Brother 4 Gilbert Obesity; Rosacea Daughter Alcohol abuse Father Wiliam Other Father Wiliam Alive and well; Alzheimer's disease Father's Brother Uncle cracker Arthritis Maternal Grandmother Faviola utech Cancer Maternal Grandmother Faviola utech Arthritis Mother Mother COPD Mother Mother COPD; Depression Mother Mother Heart disease Mother Mother Cardiovascular disease; Hyperlipidemia Mother Mother Hypertension Mother Mother Hypertension; Thyroid disease Mother Mother Thyroid diso rder; Cancer Mother's Sister Renu utech Hypertension Other 1 Hypertension; Heart disease Other 2 Family history of Heart disease; Thyroid disease Other 3 Family histo ry of Thyroid disorder; Diabetes Other 4 Family history of Diabetes mellitus; Hypertension Other 5 Family history of Hypertension; Thyroid disease Other 6 Family histo ry of Thyroid disease; Relation Name Status Comments Brother 1 Alive Brother 2 Brother 3 Brother 4 Gilbert Daughter Alive Father Wiliam Alive Father's Brother Uncle cracker Maternal Grandmother Faviola herbert Mother Mother Mother's Sister Renu herbert Other 1 Other 2 Other 3 Other 4 Other 5 Other 6 Social History Tobacco Use Types Packs/Day Years Used Date Smoking Tobacco: Heavy Smoker Cigarettes Smokeless Tobacco: Never Tobacco Cessation:Ready to Q uit: No; Counseling Given: Yes Comments:Smoking History Packs/day: 1 Packs Alcohol Use Standard Drinks/Week Comments Yes 0 (1 standard drink = 0.6 oz pur e alcohol) Rarely PHQ-2 Answer Date Recorded PHQ-2 Total Score 0 09/05/2021 Comments No Sex and Gender Information Value Date Recorded Sex Assigned at Not on file Legal Sex Female 10:07 AM REWEAVER Gender Identity Female 03/28/2019 11:29 AM CDT Sexual Orientation Straight 03/28/2019 11 :29 AM CDT Obstetrics History Last Filed Vital Signs Vital Sign Reading Time Taken Comments Blood Pressure 112/70 12/12/2021 12:31 PM CDT Pulse 75 12/12/2021 12:31 PM CDT Temperature 36.3 C (97.3 F) 09/05/2021 10:09 AM REWEAVER Respiratory Rate 16 12/12/2021 12:31 PM CDT Oxygen Saturation 97% 12/12/2021 12:31 PM CDT Inhaled Oxygen Concentration - - Weight 98.9 kg (218 lb) 12/12/2021 12:31 PM CDT Height 170.2 cm (5' 7 ) 12/12/2021 12:31 PM CDT Body Mass Index 34.14 12/12/2021 12:31 PM CDT Plan of Treatment Health Maintenance Due Date Last Done Comments Hepatitis B Screening 1987 Regular Well Visit/Exam 18-64 1987 Depression Screening 09/05/2022 09/05/2021, 03/13/2021, 08/22/2020, Additional history exists Zoster Vaccine (2 of 2) 09/26/2022 08/01/2022 Breast Cancer Screening-Mammogram 04/23/2023 022, 04/23/2022 Pneumococcal vaccine <65 (2 of 2 - PCV) 07/24/2023 07/24/2022 Covid-19 Vaccine (5 - 2024-2 6 season) 2025 11/23/2021, 05/28/2021, 07/29/2020, Additional history exists Influenza Vaccine (#1) 2025 4, 06/25/2023, 06/24/2022, Additional history exists DTaP/Tdap/Td Vaccine (2 - Td or Tdap) 02/18/2032 02/17/2022 Hepatitis C Screening Completed 01/12/2020 Colon Cancer Screening-Colonoscopy Discontinued Goals Goal Patient Goal Type Associated Problems Recent Progress Patient-Stated? Author [facility] On track( 017 11:50 AM REWEAVER) Berry Kingsley, RN Note: Describe how unrelieved pain will be managed. Procedures Procedure Name Priority Date/Time Associated Diagnosis Comments HEPATITIS PANEL, ACUTE Routine 01/12/2020 12:19 PM CDT Seropositive rheumatoid arthritis of multiple joints (HCC) from Last 3 Months or Most Recently Relevant to Health Maintenance Results * Hepatitis panel, acute (01/12/2020 12:19 PM CDT) Hep A IgM Nonreactive Nonreactive [facility] Comment: Interpretive Data: If Hep A IgM Ab is reported as Equivocal, a new sample should be drawn in two weeks for testing. Current interpretive data was last revised on 19. Hep B core IgM Nonreactive Nonreactive [facility] Comment: Interpretive Data If HepB Core IgM Ab is reported as Equivocal, a new sample should be drawn in two weeks for testing. Current interpretive data was last revised on 19. Hep C Ab Nonreactive Nonreactive [facility] Comment:Antibodies to HCV no t detected. Does NOT exclude the possibility of recent exposure to HCV. HepBsAg Nonreactive Nonreactive [facility] Blood specimen (specimen) 01/12/2020 12:19 PM CDT 01/12/2020 3:02 PM CDT us Irina Hill MD LAB MICROBIOLOGY - GENERAL O RDERABLES Edited Result - Final [facility] [place] [address] from Last 3 Months or Most Recently Relevant to Health Maintenance Insurance [phone] (Work) [address] [employer] CLAIMS Care Teams Associate Doctor Relationship Specialty Start Date End Date Cyndee Oliver NP [address] [place] [address] PCP - General Nurse Practitioner 11/24/24 Berry Morrow, RN Registered Nurse 07/05/17
--- OUTSIDE RECORDS SUMMARY | 2025-05-06 17:31 | XMS_ITS | Clinical Summary ---
Author Organization [facility] Address [address] [place] [address] Care Team Providers Care Scrub Tech Name Role Phone Eleno Brandt MD Primary Care Provider [phone] Source Comments [facility]),non-owned Affiliates and Associated Physician Practices is amultiple site organization consisting of ambulatory clinics and hospital sitesin [place], [place], [place] and [place]. This disclosure is being madepursuant to the Care Everywhere program and may not contain all information available regarding this patient. Last updated 18.[facility] Allergies Active Allergy Reactions Criticality Noted Date Comments Cashew Nut Oil Diarrhea,Nausea and/or Vomiting 02/16/2022 Medications * Be aware that medications may not be up to date on this document. Alwaysverify current medications with the patient. rOPINIRole (Requip) 1 MG tablet TAKE 1 TABLET(1 MG) BY MOUTH THREE TIMES DAILY 4 Active QUEtiapine (SEROquel) 50 MG tablet Take 1 (one) tablet by mouth once daily 4 Active levothyroxine (Synthroid) 175 MCG tablet TAKE 1 TABLET EVERY MORNING, WITH 25 MCG LEVOTHYROXINE TO MAKE A TOTAL OF 200 MCG DAILY 3 Active ALPRAZolam (Xanax) 0.5 MG tablet Take 1 (one) tablet by mouth once daily as needed 3 Active cyanocobalamin (Vitamin B-12) injection INJECT 1000 MCG WEEKLY FOR THE FIRST 8 WEEKS THEN CHANGE TO 1000 MCG MONTHLY THEREAFTER 3 Active FLUoxetine (PROzac) 40 MG capsule Take 1 (one) capsule by mouth once daily 4 Active gabapentin (Neurontin) 300 MG capsule Take 300 mg in the morning and 300 mg in the afternoon and 600 mg at bedtime. 4 Active hydroxychloroq uine (Plaquenil) 200 MG tablet Take 2 (two) tablets by mouth once daily 4 Active polyethylene glycol (Golytely) 236 g solution Drink half of prep solution at 5pm the night before colonoscopy. Finish the prep at 4am the day of test. 4000 mL 4 Active albuterol HFA (Proventil; Ventolin; Proair) 108 (90 Base) MCG/ACT inhaler Inhale 2 (two) puffs by mouth as needed for Wheezing 4 Active aspirin (Aspirin) 81 MG chew tablet Take 1 (one) tablet by mouth once daily 4 Active rosuvastatin (Crestor) 10 MG tablet Take 1 (one) tablet by mouth once daily 4 Active tirzepatide (Zepbound) 10 MG/0.5ML injection Inject 10 (ten) mg subcutaneously 4 Active FLUoxetine (PROzac) 20 MG capsule Take 1 (one) capsule by mouth once daily Active levothyroxine (Synthroid) 25 MCG tablet Take 1 (one) tablet by mouth daily before breakfast Active folic acid (Folvite) 1 MG tabletIndicati ons:Seropositi ve rheumatoid arthritis (HCC) Take 1 (one) tablet by mouth once daily 90 tablet 4 4 Active Encounters Date Type Department Care Team Description 03/09/2025 Orders Only [facility], [place] [id number] Milly Hopper MD Therapeutic drug monitoring from Last 3 Months Social History Tobacco Use Types Packs/Day Years Used Date Smoking Tobacco: Some Days Cigarettes Smokeless Tobacco: Never Tobacco Cessation:Ready to Q uit: Not Asked; Counseling Given: Not Answered Alcohol Use Standard Drinks/Week Comments Yes 0 (1 standard drink = 0.6 oz pur e alcohol) social PHQ-2 Answer Date Recorded Patient Health Questionnaire-2 Score 1 07/04/2024 Comments No Sex and Gender Information Value Date Recorded Sex Assigned at Not on file Legal Sex Female 10:09 AM CDT Gender Identity Not on file Sexual Orientation Not on file Last Filed Vital Signs Vital Sign Reading Time Taken Comments Blood Pressure 101/79 07/04/2024 1:40 PM INSTITUTIONAL AIDE Pulse 91 07/04/2024 1:40 PM INSTITUTIONAL AIDE Temperature 36.7 C (98.1 F) 07/04/2024 1:40 PM INSTITUTIONAL AIDE Respiratory Rate - - Oxygen Saturation 94% 07/04/2024 1:40 PM INSTITUTIONAL AIDE Inhaled Oxygen Concentration - - Weight 91.6 kg (202 lb) 07/04/2024 1:40 PM INSTITUTIONAL AIDE Height 170.2 cm (5' 7 ) 07/04/2024 1:40 PM INSTITUTIONAL AIDE Body Mass Index 31.64 07/04/2024 1:40 PM INSTITUTIONAL AIDE Plan of Treatment Health Maintenance Due Date Last Done Comments COLOGUARD (AGES 45-75) - COLON CA SCREENING 1969 COLON MONITORING 1969 COLONOSCOPY - COLON CA SCREENING 1969 CT COLONOGRAPHY - COLON CA SCREENING 1969 Colorectal Cancer Screening 1969 FIT - COLON CA SCREENING 1969 FLEX SIG - COLON CA SCREENING 1969 HIV SCREENING 1984 DTAP/TDAP/TD VACCINES (1 - Tdap) 1988 HEPATITIS B VACCINE (1 of 3 - 19+ 3-dose series) 1988 PNEUMOCOCCAL VACCINE 50+ (1 of 2 - PCV) 1988 ZOSTER VACCINE (1 of 2) 1988 PAP SMEAR 1990 MAMMOGRAM 04/23/2024 04/23/2022, 04/23/2022 SCREENING FOR DIABETES 07/04/2024 DEPRESSION SCREENING 07/26/2024 07/04/2024 COVID-19 VACCINE ( season) 2025 11/23/2021, 05/28/2021, 07/29/2020, Additional history exists INFLUENZA VACCINE (#1) 2025 , 06/25/2023, 06/24/2022, Additional history exists HEPATITIS C SCREENING Completed 07/04/2024, 022 HIB VACCINE Aged Out No longer eligi ble based on patient's age to complete this topic HPV VACCINE Aged Out No longer eligi ble based on patient's age to complete this topic MENINGOCOCCAL (Group B) VACCINE SHARED DECISION-MAKING Aged Out No longer eligible based on patient's age to complete this topic MENINGOCOCCAL GROUPS A/C/Y/W VACCINE Aged Out No longer eligible based on patient's age to complete this topic Procedures Procedure Name Priority Date/Time Associated Diagnosis Comments HEPATITIS C AB SCREEN RFLX NAAT QUANT Routine 07/04/2024 2:58 PM INSTITUTIONAL AIDE Need for hepatitis C screening test from Last 3 Months or Most Recently Relevant to Health Maintenance Results * HEPATITIS C AB SCREEN RFLX NAAT QUANT (07/04/2024 2:58 PM INSTITUTIONAL AIDE) Hepatitis C Antibody Non-react heladio Non-reac tive 07/04/2024 4:18 PM INSTITUTIONAL AIDE [facility] Comment:Hepatitis C Antibody screen indicates no serologic evidence of past or current infection with Hepatitis C Virus. Patients with unexplained liver disease who are immunocompromised or suspected of having acute Hepatitis C infection may benefit from Nucleic Acid Test (MARIIA) for Hepatitis C Viral RNA to confirm Hepatitis C status. Blood BLOOD SPECIMEN / Unknown Lab Venipuncture / Unknown 07/04/2024 2:58 PM INSTITUTIONAL AIDE 07/04/2024 3:20 PM INSTITUTIONAL AIDE Milly Hopper MD LAB - CHEMISTRY ORDERABLES Critical access hospital Result [facility] [address] [place] [id number], [facility] [phone] from Last 3 Months or Most Recently Relevant to Health Maintenance Insurance Care Teams Scrub Tech Relationship Specialty Start Date End Date Eleno Brandt MD [address] [address] PCP - General Internal Medicine 07/04/24
--- OUTSIDE RECORDS SUMMARY | 2025-05-06 17:31 | XMS_ITS | Encounter Summary ---
Author Organization [facility] Address [address] [place] [address] Care Team Providers Care Biodiesel Engineering Manager Name Role Phone Cyndee Oliver Primary Care Provider [phone] Reason for Visit * Reason Onset Date Comments Error 05/02/2025 Encounter Details Date Type Department Care Team (Late st Contact Info) Description 05/02/2025 Telephone [facility] Medical Group Family and Sports Medicine - [place] [address] [place] [address] Cyndee Oliver APNP [address] [place], [place] [phone] Error Social History Tobacco Use Types Packs/Day Years [...] from your doctor or pharmacy? Never 04/26/2025 [facility] Utilities Answer Date Recorded In the past 12 months has th e electric, gas, oil, or water company threatened to shut off services in your [...] How often do you attend chur or protestant services? Never 04/26/2025 Do you belong to any clubs o r organizations such as methodist groups, unions, fraternal or athletic groups, or [...] Recorded Patient Health Questionnaire-2 Score 5 12/21/2024 [facility] of Occupat ional Health - Occupational Stress [...] any time in the past 12 m [facility], were you homeless or living in a long term (including now)? No 04/26/2025 Comments No Sex and Gender Information Value Date Recorded Sex Assigned at Female 08/09/2024 9:28 AM FRONT COUNTER ATTENDANT Legal Sex Female 8:00 PM CDT Gender Identity Not on file Sexual Orientation Not on file documented as of this encounter Functional Status * Are you deaf or do you have serious difficulty hearing Answer Date of Assessment Author Status No 04/26/2025 1:00 AM JOHNYT Sonya Adam RN Active * Are you [...] AM CDT Sonya Adam RN Active documented as of this encounter Mental Status * Because of a physical, mental, or emotional condition, do you have serious difficulty concentrating, remembering, or making decisions? Answer Entry Date Author Status No 04/26/2025 1:00 AM CDT Sonya Adam RN Active documented in this encounter Plan of Treatment Upcoming Encounters Date Type Department Care Team (Late st Contact Info) Description 05/22/2025 9:45 AM CDT [facility] [address] [place], [place] [address] Umm Peterson FNP 3 [facility] [address] [place], [place] [address] 05/23/2025 12:[address] [facility] Cardiopulmonary Rehab 3 [place] [address] Carlos Eduardo Mora MD Three [facility]. [facility] [address] [place], [place] [id number] documented as of this encounter Visit Diagnoses Not on filedocumented in this encounter Additional Health Concerns Assessment Noted Time PHQ-9 Depression Total Score: 15 025 3:44 PM CDT documented as of this encounter Care Teams Biodiesel Engineering Manager Relationship Specialty Start Date End Date Cyndee Oliver APNP [address] [place] [address] PCP - General NURSE PRACTITIONER 08/30/24 documented as of this encounter
--- OUTSIDE RECORDS SUMMARY | 2025-05-06 17:31 | XMS_ITS | Encounter Summary ---
Author Organization [facility] Address [address] [place] [address] Care Team Providers Care Personal Banker Name Role Phone Cyndee Oliver Primary Care Provider [phone] Reason for Visit * Reason Onset Date Comments TCM 04/30/2025 Encounter Details Date Type Department Care Team (Late st Contact Info) Description 04/30/2025 Telephone [facility] Medical Group Family and Sports Medicine - [place] [address] [place] [address] Cyndee Oliver APNP [address] [place] [address] TCM Social History Tobacco Use Types Packs/Day Years [...] your doctor or pharmacy? Never 04/26/2025 [facility] Utilities Answer Date Recorded In the past [...] How often do you attend chur or advent services? Never 04/26/2025 Do you belong to any clubs o r organizations such as yazdanism groups, unions, fraternal or athletic groups, or [...] Recorded Patient Health Questionnaire-2 Score 5 12/21/2024 [facility] of Occupat ional Health - Occupational [...] any time in the past [address] [facility], were you homeless or living in a mcfp (including now)? No 04/26/2025 Comments No Sex and Gender Information Value Date Recorded Sex Assigned at Female 08/09/2024 9:28 AM PERFORATOR OPERATOR OIL WELL Legal Sex Female 8:00 PM CDT Gender [...] AM JOHNYT Sonya Adam RN Active * Because of a physical, mental, or emotional condition, do you have difficulty doing errands alone such as visiting a doctor's office or shopping? Answer Date of Assessment Author Status No 04/26/2025 1:00 AM Sonya Holguin RN Active documented as of this encounter Mental Status * Because of a physical, mental, or emotional condition, do you have serious difficulty concentrating, remembering, or making decisions? Answer Entry Date Author Status No 04/26/2025 1:00 AM Sonya Holguin RN Active documented in this encounter Progress Notes * Annemarie Chow CMA - 04/30/2025 2:23 PM CDT Follow up call to patient post hospitalization Date of hospital discharge: 04/27/25 Patient discharged from: [facility] Discharge diagnosis/diagnoses: NSTEMI Procedures performed while inpatient: Yes. Begin the medication reconciliation process (completed at first face to face visit) Any follow up services needed: Yes. Education on self management: Yes. Assess adherence with treatment (medication) regimen and provide support. Does patient have access to care and services (rides, etc)? Yes. Appointment scheduled for follow up in the office (7 days if high complexity or within 14 days for medium complexity) Appointment Date: 04/30/25 Time: 3:20pm documented in this encounter Plan of Treatment Upcoming Encounters Date Type Department Care Team (Late st Contact Info) Description 05/22/2025 9:45 AM CDT Office Visit [facility] [place] THREE [facility] [address] [place] [address] Umm Peterson FNP 3 [facility] [address] [place], [place] [address] 05/23/2025 12:30 PM CDT Appointment [facility] Cardiopulmonary Rehab 3 [place] [address] Carlos Eduardo Mora MD Three [facility]. [address] [address] documented as of this encounter Visit Diagnoses Not on filedocumented in this encounter Additional Health Concerns Assessment Noted Time PHQ-9 Depression Total Score: 15 025 3:44 PM CDT documented as of this encounter Care Teams Personal Banker Relationship Specialty Start Date End Date Cyndee Oliver APNP [address] [place] [address] PCP - General NURSE PRACTITIONER 08/30/24 documented as of this encounter
--- OUTSIDE RECORDS SUMMARY | 2025-05-06 17:31 | XMS_ITS | Encounter Summary ---
Author Organization [facility] Address [facility] [place] [address] Care Team Providers Care Rn Womens Health Name Role Phone Cyndee Oliver Primary Care Provider [phone] Encounter Details Date Type Department Care Team (Latest Contact Info) Description 04/30/2025 Travel Social History Tobacco Use Types Packs/Day Years [...] from your doctor or pharmacy? Never 04/26/2025 [facility] Utilities Answer Date Recorded In the past 12 months has [facility] [employer], oil, or water [employer] threatened to shut off services in your [...] How often do you attend chur or temple services? Never 04/26/2025 Do you belong to any clubs o r organizations such as jain groups, unions, fraternal or athletic groups, or [...] Recorded Patient Health Questionnaire-2 Score 5 12/21/2024 [facility] of Occupat ional Health - Occupational Stress [...] any time in the past 12 m [place], were you homeless or living in a care home (including now)? No 04/26/2025 Comments No Sex and Gender Information Value Date Recorded Sex Assigned at Female 08/09/2024 9:28 AM SCABBLER Legal Sex Female 8:00 PM CDT Gender [...] 04/26/2025 1:00 AM Sonya Holguin RN Active * Do you have serious difficulty walking or climbing stairs? Answer Date of Assessment Author Status No 04/26/2025 1:00 AM Sonya Holguin RN Active * Do you have difficulty dressing or bathing? Answer Date of Assessment Author Status No 04/26/2025 1:00 AM Sonya Holguin RN Active * Because of a physical, [...] 05/22/2025 9:45 AM CDT Office Visit [facility] THREE [facility] [address] [place] [address] Umm Peterson FNP 3 [facility] [address] [place] [address] 05/23/2025 12:30 PM CDT App[address]ment [facility] Cardiopulmonary Rehab 3 [place] [address] Carlos Eduardo Mora MD Three [facility]. [facility] [address] [place] [address] documented as of this encounter Visit Diagnoses Not on filedocumented in this encounter Additional Health Concerns Assessment Noted Time PHQ-9 Depression Total Score: 15 025 3:44 PM CDT documented as of this encounter Care Teams Rn Womens Health Relationship Specialty Start Date End Date Cyndee Oliver APNP [address] [place] [address] PCP - General NURSE PRACTITIONER 08/30/24 documented as of this encounter
--- OUTSIDE RECORDS SUMMARY | 2025-05-06 17:31 | XMS_ITS | Encounter Summary ---
Author Organization [facility] Address [address] [place] [address] Care Team Providers Care Printing Supervisor Name Role Phone Eleno Brandt MD Primary Care Provider [phone] Cyndee Oliver Primary Care Provider [phone] Encounter Details Date Type Department Care Team (Late Contact Info) Description 06/29/2023 MyChart Message Enc [facility] Medical Group Multispecialty Care - [place] [address] [address] [place], [place] [phone] Eleno Brandt MD [address] [place] [address] [address] [place] [address] Jardiance Social History Tobacco Use Types Packs/Day Years Used Date Smoking Tobacco: Former Cigarettes 0.5 35 0 02/14/1988 - 02/13/2023 Passive Smoke Exposure: Past Smokeless Tobacco: Never Comments:counseled by Dr Humaira queen Alcohol Use Standard Drinks/Week Comments Not Currently 0 (1 standard drink = 0.6 oz pur e alcohol) Socially PHQ-2 Answer Date Recorded Patient Health Questionnaire-2 Score 3 07/22/2022 Comments No Sex and Gender Information Value Date Recorded Sex Assigned at Female 08/09/2024 9:28 AM HYDROGEN OPERATOR Legal Sex Female 8:00 PM CDT Gender Identity Not on file Sexual Orientation Not on file documented as of this encounter Plan of Treatment Upcoming Encounters Date Type Department Care Team (Late st Contact Info) Description 05/22/2025 9:45 AM CDT Office Visit [facility] THREE [facility] [address] [place], [place] [address] Umm Peterson FNP 3 [facility] [address] [place] [address] 05/23/2025 12:30 PM CDT Appointment [facility] Cardiopulmonary Rehab [address] [place] [address] Carlos Eduardo Mora MD Three [facility]. [facility] [address] [place], [place] [address] documented as of this encounter Visit Diagnoses Not on filedocumented in this encounter Additional Health Concerns Infection Onset Date Last Indicated Resolved Time COVID-19 Rule Out 06/05/2024 06/05/2024 06/05/2024 6:55 AM HYDROGEN OPERATOR COVID-19 Confirmed 06/05/2024 06/05/2024 12:33 AM HYDROGEN OPERATOR COVID-19 Rule Out 08/30/2024 08/30/2024 08/30/2024 3:04 PM HYDROGEN OPERATOR COVID-19 Confirmed 08/30/2024 08/30/2024 12:32 AM HYDROGEN OPERATOR Assessment Noted Time PHQ-9 Depression Total Score: 12 07/22/ 022 5:32 PM HYDROGEN OPERATOR documented as of this encounter Care Teams Printing Supervisor Relationship Specialty Start Date End Date Eleno Brandt MD [address] [address] PCP - General INTERNAL MEDICINE 01/19/22 08/29/24 Cyndee Oliver APNP [address] [place] [address] PCP - General NURSE PRACTITIONER 08/30/24 documented as of this encounter
--- OUTSIDE RECORDS SUMMARY | 2025-05-06 17:31 | XMS_ITS | Encounter Summary ---
Author Organization [facility] Address [address] [place] [address] Care Team Providers Care Sfdc Architect Name Role Phone Cyndee Oliver Primary Care Provider [phone] Encounter Details Date Type Department Care Team (Late st Contact Info) Description 2025 Smartsheet Message Enc [facility] Medical Group Family and Sports Medicine - [place] [address] [place] [address] Cyndee Oliver APNP [address] [place] [address] Adderall to be stopped Social History Tobacco Use Types Packs/Day Years [...] from your doctor or pharmacy? Never 04/26/2025 [facility] Utilities Answer Date Recorded In the past [...] How often do you attend chur or mandaeism services? Never 04/26/2025 Do you belong to any clubs o r organizations such as shinto groups, unions, fraternal or athletic groups, or [...] Recorded Patient Health Questionnaire-2 Score 5 12/21/2024 [facility] of Occupat ional Health - Occupational Stress [...] time in the past 12 m [facility], were you homeless or living in a custodial (including now)? No 04/26/2025 Comments No Sex and Gender Information Value Date Recorded Sex Assigned at Female 08/09/2024 9:28 AM WASTE WATER PLANT OPERATOR Legal Sex Female 8:00 PM CDT [...] Author Status No 04/26/2025 1:00 AM CDT Gazdik, Sonya N, RN Active * Do you have difficulty [...] Description 05/22/2025 9:45 AM CDT Office Visit [facility] [address] [place] [address] Umm Peterson FNP 3 [facility] [address] [place] [address] 05/23/2025 12:30 PM CDT Appointment [facility] Cardiopulmonary Rehab 3 [place] [address] Carlos Eduardo Mora MD Three [facility]. [facility] [address] [place] [address] documented as of this encounter Visit Diagnoses Not on filedocumented in this encounter Additional Health Concerns Assessment Noted Time PHQ-9 Depression Total Score: 15 025 3:44 PM CDT documented as of this encounter Care Teams Sfdc Architect Relationship Specialty Start Date End Date Cyndee Oliver APNP [address] [place] [address] PCP - General NURSE PRACTITIONER 08/30/24 documented as of this encounter
--- OUTSIDE RECORDS SUMMARY | 2025-05-06 17:31 | XMS_ITS | Encounter Summary ---
Author Organization [facility] - [facility] Address [address] [place] [address] Care Team Providers Care Product Applications Engineer Name Role Phone Eleno Brandt MD Primary Care Provider [phone] Cyndee Oliver Primary Care Provider [phone] Encounter Details Date Type Department Care Team (Latest Contact Info) Description 05/21/2023 [email or web address] Message Enc [facility] - [place] [address] [address] [place], [place] [id number] Eleno Brandt MD [address] [place] [address] [address] [place] [address] Fax number needed Social History Tobacco Use Types Packs/Day Years [...] Sex Assigned at Female 08/09/2024 9:28 AM PHYSICAL SCIENCE TEACHER Legal Sex Female 8:00 PM CDT Gender Identity Not on file Sexual Orientation Not on file documented as of this encounter Functional Status * Calculated C-SSRS Risk Score (Lifetime/Recent) Answer Date of Assessment Author Status No Risk Indicated 05/21/2023 11:54 AM CDT Eleno Brandt MD Active * [place] Suicide Severity Rating Scale (Screener/Recent Self-Report) Question Answer Date of Assessment Author Status 1. Wish to be (Past 1 Month) No 05/21/2023 11:54 AM CDT Eleno Brandt MD Active 2. Non-Specific Active Suicidal Thoughts (Past 1 Month) No 05/21/2023 11:54 AM CDT Eleno Brandt MD Active 6. Suicidal Behavior (Lifetime) No 05/21/2023 11:54 AM CDT Eleno Brandt MD Active documented as of this encounter Plan of Treatment Upcoming Encounters Date Type Department Care Team (Late st Contact Info) Description 05/22/2025 9:45 AM CDT Office Visit [facility] [facility], [address] [place], [place] [id number] Umm Peterson FNP 3 [facility] [address] [place], [place] [id number] 05/23/2025 12:30 PM CDT Appointment [facility] [address] [facility] [address] Carlos Eduardo Mora MD [facility]. [address] [place], [place] [address] documented as of this encounter Visit Diagnoses Not on filedocumented in this encounter Additional Health Concerns Infection Onset Date Last Indicated Resolved Time COVID-19 Rule Out 06/05/2024 06/05/2024 06/05/2024 6:55 AM PHYSICAL SCIENCE TEACHER COVID-19 Confirmed 06/05/2024 06/05/2024 12:33 AM PHYSICAL SCIENCE TEACHER COVID-19 Rule Out 08/30/2024 08/30/2024 08/30/2024 3:04 PM PHYSICAL SCIENCE TEACHER COVID-19 Confirmed 08/30/2024 08/30/2024 12:32 AM PHYSICAL SCIENCE TEACHER Assessment Noted Time PHQ-9 Depression Total Score: 12 12/28/2 022 5:32 PM PHYSICAL SCIENCE TEACHER documented as of this encounter Care Teams Product Applications Engineer Relationship Specialty Start Date End Date Eleno Brandt MD [address] [facility] [address] [place] [address] PCP - General INTERNAL MEDICINE 01/19/22 08/29/24 Cyndee Oliver APNP [address] [place] [id number] PCP - General NURSE PRACTITIONER 08/30/24 documented as of this encounter
--- OUTSIDE RECORDS SUMMARY | 2025-05-06 17:31 | XMS_ITS | Encounter Summary ---
Author Organization [facility] Address [address] [place] [address] Care Team Providers Care Hotel Staff Member Name Role Phone Eleno Brandt MD Primary Care Provider [phone] Cyndee Oliver Primary Care Provider [phone] Encounter Details Date Type Department Care Team (Carole Veronica Info) Description 12/31/2022 [employer] Message Enc [facility] Care [address] [place] [address] [place], [facility] Provider Referral Social History Tobacco Use Types Packs/Day Years Used Date Smoking Tobacco: Every Day Cigarettes 0.5 35 Started: 06/21/1987; Last attempted to quit: 06/21/2022 Passive Smoke Exposure: Past Smokeless Tobacco: Never Comments:counseled by Dr Humaira queen Alcohol Use Standard Drinks/Week Comments Yes 0 (1 standard drink = 0.6 oz pur e alcohol) Socially PHQ-2 Answer Date Recorded Patient Health Questionnaire-2 Score 3 07/22/2022 Comments No Sex and Gender Information Value Date Recorded Sex Assigned at Female 08/09/2024 9:28 AM HAND BANDER Legal Sex Female 8:00 PM CDT Gender Identity Not on file Sexual Orientation Not on file COVID-19 Exposure Response Date Recorded In the last 10 days, have yo u been in contact with someone who was confirmed or suspected to have Coronavirus/COVID-19? No / Unsure 12/03/2022 10:13 AM CDT documented as of this encounter Plan of Treatment Upcoming Encounters Date Type Department Care Team (Carole moore Contact Info) Description 05/22/2025 9:45 AM CDT Office Visit [facility] THREE [facility], [place] [place], [place] [id number] Umm Peterson FNP [address] [facility] [address] [place], [place] [address] 05/23/2025 12:30 PM CDT Appointment [facility] Rehab [address] [place] [address] Carlos Eduardo Mora MD Three [facility]. [facility] [address] [place], [place] [id number] documented as of this encounter Visit Diagnoses Not on filedocumented in this encounter Additional Health Concerns Infection Onset Date Last Indicated Resolved Time COVID-19 Rule Out 06/05/2024 06/05/2024 06/05/2024 6:55 AM HAND BANDER COVID-19 Confirmed 06/05/2024 06/05/2024 12:33 AM HAND BANDER COVID-19 Rule Out 08/30/2024 08/30/2024 08/30/2024 3:04 PM HAND BANDER COVID-19 Confirmed 08/30/2024 08/30/2024 12:32 AM HAND BANDER Assessment Noted Time PHQ-9 Depression Total Score: 12 022 5:32 PM HAND BANDER documented as of this encounter Care Teams Hotel Staff Member Relationship Specialty Start Date End Date Eleno Brandt MD [address] [address] PCP - General INTERNAL MEDICINE 01/19/22 08/29/24 Cyndee Oliver APNP [address] [place] [id number] PCP - General NURSE PRACTITIONER 08/30/24 documented as of this encounter
--- NOTE | 2025-05-06 17:32 | ECG_ITS ---
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
--- NOTE | 2025-05-06 17:33 | W.ED.CHESTPA ---
Documented by User: EVAN Castelan 05/07/25 00:00 HPI - Chest Pain General: Chief Complaint: Chest Pain Stated Complaint: chest pain n/v both arms tingly Time Seen by Provider: 05/06/25 17:22 Source: patient Mode of arrival: wheelchair Limitations: no limitations History of Present Illness: Patient is a 55-year-old female presents to ED today with complaint of what she describes as epigastric and substernal chest pain that began today. Patient states she is scared as she was recently hospitalized in [place] and was told that she had experienced a heart attack. She states her troponin was 1600. She states she was taken to the cardiac rn lab but no significant blockages were found and no stents were placed. Patient states she had been doing okay until today. She is describing a burning sensation to her epigastric region and states she has horrible heartburn but states these were the symptoms she had when she was told that she had had a heart attack. Patient does not remember all of her medications but states she does take Plavix and Synthroid. She is an everyday smoker. Patient does report a previous Riya-en-Y about 13 years ago. We did obtain records from [facility] in [place] where patient was hospitalized. We did not receive all the records but according to what we did receive, patient presented to their ED with nausea and dry heaving. She was subsequently admitted after her troponin was 1645. This continued to trend downward at her 2-hour and 6-hour (1444 and 1089). She did undergo cardiac catheterization showing minimal nonobstructive coronary artery disease-no stents placed. She did have an echocardiogram with an EF of 50 to 55% with moderate anterioseptal base, mid inferioseptal hypokinesis and mild mid anterior hypokinesis. 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 complaint: chest pain Onset (ago): hour(s) Timing of current episode: constant Prior episodes: Yes Onset: during rest Pain location: substernal Pain radiation: none Severity: moderate Quality: burning Relieving factors: nothing Exacerbating factors: nothing Associated symptoms: Deny abdominal pain, dyspnea, fever(s), nausea, palpitations, syncope or vomiting Treatment prior to arrival: none Risk Factors: Coronary artery disease risk factors: smoking history Thoracic aortic dissection risk factors: none Related Data Allergies Allergy/AdvReac Type Severity Reaction Status Date / Time No Known Allergies Allergy Verified 05/06/25 17:40 Review of Systems Const: Denies: fever(s) or chills Eyes: Denies: change in vision or blurry vision Card: Reports: chest pain; Denies: palpitations, irregular heart rhythm, edema, swelling of feet/ankles, lightheadedness, syncope, pre-syncope, dyspnea on exertion, orthopnea, leg pain with exertion or acrocyanosis Resp: Denies: dyspnea, productive cough or pain on inspiration GI: Reports: heartburn; Denies: abdominal pain, nausea, vomiting or diarrhea : Denies: flank pain, dysuria or hematuria Musc: Denies: neck pain, back pain, extremity pain, extremity swelling or joint pain Skin/Breast: Denies: rash Neuro: Denies: headache(s), numbness in extremities, weakness in extremities, sensory changes or dizziness Physical Exam Const: COMMON NORMALS: no acute distress, average body habitus, patient oriented x3, no limitations, healthy appearing, alert and well nourished GENERAL APPEARANCE: cooperative ORIENTATION/CONSCIOUSNESS: Yes awake, Yes oriented to person, Yes oriented to place and Yes oriented to time HENMT: COMMON NORMALS: normocephalic and atraumatic HEAD & SCALP: normal to inspection, normocephalic and atraumatic Neck/C-Spine: COMMON NORMALS: full ROM, no lymphadenopathy, supple and no meningeal signs Chest: COMMONS NORMALS: normal inspection of the chest Resp: COMMON NORMALS: normal respiratory effort and clear to auscultation bilaterally AUSCULTATION: clear to auscultation bilaterally Cardio: COMMON NORMALS: regular rate and regular rhythm RATE: regular rate RHYTHM: regular rhythm GI: COMMON NORMALS: Normal to inspection, nondistended, normoactive bowel sounds present, Soft to palpation, No hepatosplenomegaly present and no masses INSPECTION: Yes normal to inspection AUSCULTATION: Yes normoactive bowel sounds PALPATION: Yes Soft to palpation, Yes Tenderness to palpation present (GI) (epigastric), No Guarding due to palpation present (GI), No Rigid due to palpation and Yes No hepatosplenomegaly present : COMMON NORMALS: Yes no CVA tenderness BLADDER/KIDNEY EXAM: Yes no CVA tenderness Back/Pelvis: COMMON NORMALS: no CVA tenderness and thoracic and lumbar spine normal to inspection Extremity: COMMON NORMALS: normal to inspection, capillary refill normal, no clubbing, cyanosis or edema, no calf tenderness and no pedal edema GENERAL: Yes normal exam except as noted Neuro: COMMON NORMALS: patient oriented x3 SENSORIUM/ORIENTATION: Yes alert, Yes oriented to person, Yes oriented to place and Yes oriented to time MENINGEAL SIGNS: Yes no meningeal signs Skin: COMMON NORMALS: no rashes or lesions noted GENERAL SKIN EXAM: no rashes or lesions noted Course Consultations: Consultation #1: Dr. Gr-recommending transfer to facility with bariatric surgery Consultation #2: Dr. [facility]-accepts transfer; [facility] is unsure on wait time for a bed Consultation #3: Dr. [id number] ED to ED transfer Additional Consultation(s): [facility] transfer line-spoke to their surgeon consumer studies professor who is recommending transfer to tertiary facility Vital Signs: Vital signs: Vital Signs Temperature 98.2 F 05/06/25 17:38 Pulse Rate 76 05/07/25 00:31 Respiratory Rate 21 H 05/07/25 00:15 Blood Pressure 102/57 05/07/25 00:31 Pulse Oximetry 98 05/07/25 00:31 Oxygen Delivery Me thod Room Air 05/06/25 21:57 MDM - Chest Pain Medical Decision Making Patient is a nice 55-year-old female who presented to the ED today with a complaint of epigastric pain. Patient states she had almost identical symptoms earlier this month when she was seen in [place] and had a troponin of 1600 and diagnosed with a myocardial infarction. She was taken to the [facility] during that hospitalization and no blockages were found. She initially presented anxious and concerned she could be having another MS. Patient's EKGs are nonischemic-she did have prolongation of her QT. She is not on any obvious QT prolonging medications. Patient's baseline troponin was 11 with a 2-hour of 12. CXR was unremarkable. CT scan had subsequently been ordered secondary to her complaint of epigastric pain with reproducible pain with palpation. This showed a perforation of the Riya-en-Y. Patient was started on IV antibiotics, blood cultures obtained, and started on IV Protonix. Dr. De La Fuente was immediately made aware. I had spoken to our general surgeon Dr. Gardiner who had recommended transfer. I have spoken to multiple facilities including [facility], , [facility], [facility] and eventually she was accepted at [facility] however air transfer ended up declining this transport due to weather. Attempted to send by ground for a life threat but no ambulance was available. Air transfer was available to [facility] and I did speak to Dr. Blakely here who accepted. Later during her stay she did develop intermittent runs of nonsustained v. tach. Dr. De La Fuente assessed patient and had consulted with cardiology and we had given her Amiodarone and Ativan as she was very anxious and these have seemed to alleviate the episodes of tachyarrhythmia. This patient was originally seen by Ted FoleyASHER Martinez. I agree with her history, evaluation, management this has a perforation of the Riya-en-Y bypass with pneumoperitoneum. Bariatric surgery is suggested. This patient had an initial EKG showing a prolonged QT interval. It is not horribly prolonged, around 500. After being told about her perforation, she became very anxious. She seemed to have more ectopy on the monitor with frequent PVCs. She then had several runs of nonsustained ventricular tachycardia up to 15 beats or so. This became quite frequent, so a bolus of 150 mg of amiodarone was ordered along with Ativan 1 mg IV. The ventricular tachycardia runs have seemed to resolve. I spoke with cardiology here briefly, and he agreed with initial dose of amiodarone, but asked to hold on the drip, as amiodarone can further prolong the QT interval. The Ativan plus amiodarone seem to transiently resolve the V. tach runs. This may be related to stress. We will give more benzodiazepines as necessary. If she continues ventricular tachycardia runs, we will be forced to give her antiarrhythmics. She is awaiting transfer to a bariatric surgery facility given her Riya-en-Y perforation. Her vitals have remained stable throughout this. Lab Data 05/06/25 17:44 05/06/25 17:44 Radiology Impressions Chest X-Ray 05/06/25 17:21 IMPRESSION: No acute findings. Abdomen/Pelvis CT 05/06/25 18:09 IMPRESSION: 1. Status post Riya-en-Y gastric bypass surgery with perforation and pneumoperitoneum. Consider perforation at anastomotic ulcers of the gastrojejunostomy or perforation of the gastric remnant, which appears dilated and inflamed. 2. There is mild wall thickening of multiple jejunal loops consistent with infectious, inflammatory or ischemic enteritis. THIS REPORT CONTAINS FINDINGS THAT MAY BE CRITICAL TO PATIENT CARE. The findings were verbally communicated via telephone conference with ALFREDA FOLEY at 8:29 PM CDT on 05/06/2025. The findings were acknowledged and understood. COMMENTS: Consistent with the [employer]'s Incidental Findings Committee white paper (J Am Phylicia Radiol 2018): Any incidental renal lesion less than 1 cm or classified as too small to characterize, or any incidental cystic renal lesion characterized as simple-appearing, is likely benign. No follow-up imaging is recommended for these lesions per consensus recommendations based on imaging criteria. Laboratory Results WBC 7.40 10^3/uL (3.29-11.43) 05/06/25 17:44 RBC 4.31 10^6/uL (3.85-5.65) 05/06/25 17:44 Hgb 12.60 g/dL (11.27-16.99) 05/06/25 17:44 Hct 38.6 % (36-47) 05/06/25 17:44 MCV 89.6 fl (85-98) 05/06/25 17:44 MCH 29.2 pg (27-33) 05/06/25 17:44 MCHC 32.6 g/dL (30-55) 05/06/25 17:44 RDW 14.7 % (12.1-15.1) 05/06/25 17:44 Plt Count 313 10^3/cmm (157-399) 05/06/25 17:44 MPV 11.0 fL (7.4-10.4) H 05/06/25 17:44 Neut % (Auto) 83.0 % 05/06/25 17:44 Lymph % (Auto) 10.8 % 05/06/25 17:44 Millard % (Auto) 5.7 % 05/06/25 17:44 Eos % (Auto) 0.0 % 05/06/25 17:44 Baso % (Auto) 0.4 % 05/06/25 17:44 Neut # (Auto) 6.14 10^3/uL (1.8-7.7) 05/06/25 17:44 Lymph # (Auto) 0.8 10^3/uL (0.8-4.8) 05/06/25 17:44 Millard # (Auto) 0.4 10^3/uL (0.2-0.9) 05/06/25 17:44 Eos # (Auto) 0.0 10^3/uL (0.0-0.8) 05/06/25 17:44 Baso # (Auto) 0.0 10^3/uL (0.0-0.1) 05/06/25 17:44 Nucleated RBC % (auto) 0 % 05/06/25 17:44 Nucleated RBCs # 0.0 /100WBC 05/06/25 17:44 Sodium 135 mmol/L (136-145) L 05/06/25 17:44 Potassium 4.4 mmol/L (3.5-5.1) 05/06/25 17:44 Chloride 100 mmol/L (98-107) 05/06/25 17:44 Carbon Dioxide 18 mmol/L (22-29) L 05/06/25 17:44 Anion Gap 21.4 (5-19) H 05/06/25 17:44 BUN 17 mg/dL (6-20) 05/06/25 17:44 Creatinine 0.6 mg/dL (0.5-0.9) 05/06/25 17:44 GFR Calculation 103.4 mL/min (90-130) 05/06/25 17:44 Glucose 112 mg/dL (65-115) 05/06/25 17:44 Calculated Osmolality 282 mOsm/kg (285-295) L 05/06/25 17:44 Lactic Acid 1.3 mmol/L (0.5-2.2) 05/06/25 17:44 Calcium 8.8 mg/dL (8.5-10.5) 05/06/25 17:44 Phosphorus 2.9 mg/dL (2.5-4.5) 05/06/25 17:44 Magnesium 1.9 mg/dL (1.7-2.3) 05/06/25 17:44 Total Bilirubin 0.6 mg/dL (0.15-1.2) 05/06/25 17:44 AST 25 U/L (0-32) 05/06/25 17:44 ALT 16 U/L (0-33) 05/06/25 17:44 Alkaline Phosphatase 77 U/L (35-105) 05/06/25 17:44 Troponin T Baseline 11 ng/L (0-10) H 05/06/25 17:44 Troponin T 120 Minute 12.12 ng/L (0-10) H 05/06/25 19:35 Delta Troponin T 1.12 ABS# (0-10) 05/06/25 19:35 Troponin T Hi Sens 6Hr 13.83 ng/L (0-10) H 05/06/25 23:24 Troponin T Hi Sens 6Hr Delta 2.83 ng/L (0-12) 05/06/25 23:24 NT-Pro-B Natriuret Pep 2142 pg/mL (0-125) H 05/06/25 17:44 Total Protein 6.1 g/dL (6.6-8.7) L 05/06/25 17:44 Albumin 3.5 g/dL (3.5-5.2) 05/06/25 17:44 Globulin 2.6 g/dL (1.3-4.6) 05/06/25 17:44 Lipase 26 U/L (13-60) 05/06/25 17:44 Urine Color Yellow (Yellow) 05/06/25 21:16 Urine Appearance Clear (CLEAR) 05/06/25 21:16 Urine pH 8 (5-7) A 05/06/25 21:16 Ur Specific Hollister 1.015 (1.005-1.030) 05/06/25 21:16 Urine Protein Trace (Negative) 05/06/25 21:16 Urine Glucose (UA) Norm (Normal) 05/06/25 21:16 Urine Ketones 1+ (Negative) H 05/06/25 21:16 Urine Blood Neg (Negative) 05/06/25 21:16 Urine Nitrate Negative (Negative) 05/06/25 21:16 Urine Bilirubin Neg (Negative) 05/06/25 21:16 Urine Urobilinogen Norm mg/dL (Negative) 05/06/25 21:16 Ur Leukocyte Esterase 1+ (Negative) H 05/06/25 21:16 Urine RBC 0-2 /hpf (0-2) 05/06/25 21:16 Urine WBC 0-5 /hpf (0-5) 05/06/25 21:16 Ur Squamous Epith Cells 0-4 /hpf (0-5) H 05/06/25 21:16 Amorphous Sediment Not Reportable 05/06/25 21:16 Urine Bacteria Trace /hpf (NONE) 05/06/25 21:16 All radiology interpretation(s) finalized by discharge Discharge Plan Discharge Patient Disposition: Xfer Short-Term Hosp Clinical Impression: History of Riya-en-Y gastric bypass, Gastric perforation, Ventricular tachycardia, non-sustained Condition: Serious Print Language: [place]ani Coding Level of Care Code ED [employer] Associate for Chg Fwd Heart Score HEART Score Components History: Moderately Suspicious EKG: Normal Age: 45-64 yrs Risk Factors: 1 or 2 Risk Factors Troponin: Baseline Trop <16 ng/L HEART Score RESULT HEART Score: 3 Documented by User: Edy De La Fuente DO 05/07/25 02:32 HPI - Chest Pain General: Chief Complaint: Chest Pain Stated Complaint: chest pain n/v both arms tingly Time Seen by Provider: 05/06/25 17:22 Related Data Allergies Allergy/AdvReac Type Severity Reaction Status Date / Time No Known Allergies Allergy Verified 05/06/25 17:40 Course Vital Signs: Vital signs: Vital Signs Temperature 98.2 F 05/06/25 17:38 Pulse Rate 76 05/07/25 00:31 Respiratory Rate 21 H 05/07/25 00:15 Blood Pressure 102/57 05/07/25 00:31 Pulse Oximetry 98 05/07/25 00:31 Oxygen Delivery Me thod Room Air 05/06/25 21:57 MDM - Chest Pain Medical Decision Making Patient is a nice 55-year-old female who presented to the ED today with a complaint of epigastric pain. Patient states she had almost identical symptoms earlier this month when she was seen in [place] and had a troponin of 1600 and diagnosed with a myocardial infarction. She was taken to the [facility] during that hospitalization and no blockages were found. She initially presented anxious and concerned she could be having another MS. Patient's EKGs are nonischemic-she did have prolongation of her QT. She is not on any obvious QT prolonging medications. Patient's baseline troponin was 11 with a 2-hour of 12. CXR was unremarkable. CT scan had subsequently been ordered secondary to her complaint of epigastric pain with reproducible pain with palpation. This showed a perforation of the Riya-en-Y. Patient was started on IV antibiotics, blood cultures obtained, and started on IV Protonix. Dr. De La Fuente was immediately made aware. I had spoken to our general surgeon Dr. Gardiner who had recommended transfer. I have spoken to multiple facilities including [facility], [facility], [facility] and eventually she was accepted at [facility] however air transfer ended up declining this transport due to weather. Attempted to send by ground for a life threat but no ambulance was available. Air transfer was available to [facility] and I did speak to Dr. Blakely here who accepted. Later during her stay she did develop intermittent runs of nonsustained v. tach. Dr. De La Fuente assessed patient and had consulted with cardiology and we had given her Amiodarone and Ativan as she was very anxious and these have seemed to alleviate the episodes of tachyarrhythmia. This patient was originally seen by Mrs. FoleyASHER Martinez. I agree with her history, evaluation, management this has a perforation of the Riya-en-Y bypass with pneumoperitoneum. Bariatric surgery is suggested. This patient had an initial EKG showing a prolonged QT interval. It is not horribly prolonged, around 500. After being told about her perforation, she became very anxious. She seemed to have more ectopy on the monitor with frequent PVCs. She then had several runs of nonsustained ventricular tachycardia up to 15 beats or so. This became quite frequent, so a bolus of 150 mg of amiodarone was ordered along with Ativan 1 mg IV. The ventricular tachycardia runs have seemed to resolve. I spoke with cardiology here briefly, and he agreed with initial dose of amiodarone, but asked to hold on the drip, as amiodarone can further prolong the QT interval. The Ativan plus amiodarone seem to transiently resolve the V. tach runs. This may be related to stress. We will give more benzodiazepines as necessary. 2 g of magnesium sulfate were given as cardiology suggested as well. If she continues ventricular tachycardia runs, we will be forced to give her antiarrhythmics. She is awaiting transfer to a bariatric surgery facility given her Riya-en-Y perforation. Her other vital signs have remained stable throughout this. Lab Data 05/06/25 17:44 05/06/25 17:44 Radiology Impressions Chest X-Ray 05/06/25 17:21 IMPRESSION: No acute findings. Abdomen/Pelvis CT 05/06/25 18:09 IMPRESSION: 1. Status post Riya-en-Y gastric bypass surgery with perforation and pneumoperitoneum. Consider perforation at anastomotic ulcers of the gastrojejunostomy or perforation of the gastric remnant, which appears dilated and inflamed. 2. There is mild wall thickening of multiple jejunal loops consistent with infectious, inflammatory or ischemic enteritis. THIS REPORT CONTAINS FINDINGS THAT MAY BE CRITICAL TO PATIENT CARE. The findings were verbally communicated via telephone conference with ALFREDA FOLEY at 8:29 PM CDT on 05/06/2025. The findings were acknowledged and understood. COMMENTS: Consistent with the [employer] [employer]'s Incidental Findings Committee white paper (J Am Phylicia Radiol 2018): Any incidental renal lesion less than 1 cm or classified as too small to characterize, or any incidental cystic renal lesion characterized as simple-appearing, is likely benign. No follow-up imaging is recommended for these lesions per consensus recommendations based on imaging criteria. Laboratory Results WBC 7.40 10^3/uL (3.29-11.43) 05/06/25 17:44 RBC 4.31 10^6/uL (3.85-5.65) 05/06/25 17:44 Hgb 12.60 g/dL (11.27-16.99) 05/06/25 17:44 Hct 38.6 % (36-47) 05/06/25 17:44 MCV 89.6 fl (85-98) 05/06/25 17:44 MCH 29.2 pg (27-33) 05/06/25 17:44 MCHC 32.6 g/dL (30-55) 05/06/25 17:44 RDW 14.7 % (12.1-15.1) 05/06/25 17:44 Plt Count 313 10^3/cmm (157-399) 05/06/25 17:44 MPV 11.0 fL (7.4-10.4) H 05/06/25 17:44 Neut % (Auto) 83.0 % 05/06/25 17:44 Lymph % (Auto) 10.8 % 05/06/25 17:44 Millard % (Auto) 5.7 % 05/06/25 17:44 Eos % (Auto) 0.0 % 05/06/25 17:44 Baso % (Auto) 0.4 % 05/06/25 17:44 Neut # (Auto) 6.14 10^3/uL (1.8-7.7) 05/06/25 17:44 Lymph # (Auto) 0.8 10^3/uL (0.8-4.8) 05/06/25 17:44 Millard # (Auto) 0.4 10^3/uL (0.2-0.9) 05/06/25 17:44 Eos # (Auto) 0.0 10^3/uL (0.0-0.8) 05/06/25 17:44 Baso # (Auto) 0.0 10^3/uL (0.0-0.1) 05/06/25 17:44 Nucleated RBC % (auto) 0 % 05/06/25 17:44 Nucleated RBCs # 0.0 /100WBC 05/06/25 17:44 Sodium 135 mmol/L (136-145) L 05/06/25 17:44 Potassium 4.4 mmol/L (3.5-5.1) 05/06/25 17:44 Chloride 100 mmol/L (98-107) 05/06/25 17:44 Carbon Dioxide 18 mmol/L (22-29) L 05/06/25 17:44 Anion Gap 21.4 (5-19) H 05/06/25 17:44 BUN 17 mg/dL (6-20) 05/06/25 17:44 Creatinine 0.6 mg/dL (0.5-0.9) 05/06/25 17:44 GFR Calculation 103.4 mL/min (90-130) 05/06/25 17:44 Glucose 112 mg/dL (65-115) 05/06/25 17:44 Calculated Osmolality 282 mOsm/kg (285-295) L 05/06/25 17:44 Lactic Acid 1.3 mmol/L (0.5-2.2) 05/06/25 17:44 Calcium 8.8 mg/dL (8.5-10.5) 05/06/25 17:44 Phosphorus 2.9 mg/dL (2.5-4.5) 05/06/25 17:44 Magnesium 1.9 mg/dL (1.7-2.3) 05/06/25 17:44 Total Bilirubin 0.6 mg/dL (0.15-1.2) 05/06/25 17:44 AST 25 U/L (0-32) 05/06/25 17:44 ALT 16 U/L (0-33) 05/06/25 17:44 Alkaline Phosphatase 77 U/L (35-105) 05/06/25 17:44 Troponin T Baseline 11 ng/L (0-10) H 05/06/25 17:44 Troponin T 120 Minute 12.12 ng/L (0-10) H 05/06/25 19:35 Delta Troponin T 1.12 ABS# (0-10) 05/06/25 19:35 Troponin T Hi Sens 6Hr 13.83 ng/L (0-10) H 05/06/25 23:24 Troponin T Hi Sens 6Hr Delta 2.83 ng/L (0-12) 05/06/25 23:24 NT-Pro-B Natriuret Pep 2142 pg/mL (0-125) H 05/06/25 17:44 Total Protein 6.1 g/dL (6.6-8.7) L 05/06/25 17:44 Albumin 3.5 g/dL (3.5-5.2) 05/06/25 17:44 Globulin 2.6 g/dL (1.3-4.6) 05/06/25 17:44 Lipase 26 U/L (13-60) 05/06/25 17:44 Urine Color Yellow (Yellow) 05/06/25 21:16 Urine Appearance Clear (CLEAR) 05/06/25 21:16 Urine pH 8 (5-7) A 05/06/25 21:16 Ur Specific Hollister 1.015 (1.005-1.030) 05/06/25 21:16 Urine Protein Trace (Negative) 05/06/25 21:16 Urine Glucose (UA) Norm (Normal) 05/06/25 21:16 Urine Ketones 1+ (Negative) H 05/06/25 21:16 Urine Blood Neg (Negative) 05/06/25 21:16 Urine Nitrate Negative (Negative) 05/06/25 21:16 Urine Bilirubin Neg (Negative) 05/06/25 21:16 Urine Urobilinogen Norm mg/dL (Negative) 05/06/25 21:16 Ur Leukocyte Esterase 1+ (Negative) H 05/06/25 21:16 Urine RBC 0-2 /hpf (0-2) 05/06/25 21:16 Urine WBC 0-5 /hpf (0-5) 05/06/25 21:16 Ur Squamous Epith Cells 0-4 /hpf (0-5) H 05/06/25 21:16 Amorphous Sediment Not Reportable 05/06/25 21:16 Urine Bacteria Trace /hpf (NONE) 05/06/25 21:16 Discharge Plan Discharge Patient Disposition: Xfer Short-Term Hosp Clinical Impression: History of Riya-en-Y gastric bypass, Gastric perforation, Ventricular tachycardia, non-sustained Condition: Serious Print Language: Azerbaijani Coding Level of Care Code ED [employer] Associate for Chg Fwd Heart Score HEART Score RESULT HEART Score: 3
[2025-05-06] MEDS: lidocaine 2% viscous 15 ML, aluminum-mag hydrox-simethicon 30 ML, sucralfate oral liq 1 GM PO (17:42)
[2025-05-06] MEDS: metoclopramide 5 mg/mL SDV 2 mL 10 MG IVP (17:53)
[2025-05-06 17:56] LABS: Hematocrit 38.6 % (36-47); Hemoglobin 12.60 g/dL (11.27-16.99); Mean Corpuscular HGB Conc 32.6 g/dL (30-55); Mean Corpuscular Hemoglobin 29.2 pg (27-33); Mean Corpuscular Volume 89.6 fl (85-98); Nucleated Red Blood Cells % 0 %; Platelet Count 313 10^3/cmm (157-399); Red Blood Count 4.31 10^6/uL (3.85-5.65); White Blood Count 7.40 10^3/uL (3.29-11.43)
--- NOTE | 2025-05-06 18:03 | PC.NURSE ---
pt in room crying states I don't want to I'm too young Pt BP 167/98 nitro tab given d/t after GI meds pt pain worse from 7 to 8, Pt reports the nitro tab helped and pain went to a 6 within 3 minutes.
--- NOTE | 2025-05-06 18:09 | CTR_ITS ---
PROCEDURE INFORMATION: Exam: CT Abdomen And Pelvis With Contrast Exam date and time: 05/06/2025 6:29 PM Age: 55 years old Clinical indication: Abdominal pain; Prior surgery; Surgery date: 6+ months; Surgery type: Appy, gb, hyst, tummy tucl, gastric bypass; PT arrives pov C/O chest pain and epigastric pain TECHNIQUE: Imaging protocol: Computed tomography of the abdomen and pelvis with contrast. Radiation optimization: All CT scans at this facility use at least one of these dose optimization techniques: automated exposure control; mA and/or kV adjustment per patient size (includes targeted exams where dose is matched to clinical indication); or iterative reconstruction. Contrast material: [id number]; Contrast volume: 100 ml; Contrast route: INTRAVENOUS (IV); COMPARISON: CR (CHEST, ) 05/06/2025 5:44 PM RADIATION DOSE METRICS: Total DLP (mGy-cm): 551.53 FINDINGS: Lungs: No consolidation in the visualized lung bases. Liver: No hepatomegaly. There are no enhancing liver masses. Gallbladder and biliary ducts: There has been a cholecystectomy. Pancreas: Normal in size and homogeneous enhancement. No ductal dilation. Spleen: Normal. No splenomegaly. Adrenal glands: Normal. No mass. Kidneys and ureters: There is no hydronephrosis. No renal or obstructive ureteral calculi are identified. However, a small nonobstructive calculus may be obscured by dense contrast in the renal collecting system. There is an 11 mm simple appearing left renal cysts. Stomach and bowel: The been Riya-en-Y gastric bypass surgery. The gastric remnant appears distended with thickened, inflamed wall. Additionally, there is some thickening of the gastrojejunal anastomosis. Multiple gas bubbles are seen arising from the stomach coursing along the undersurface of the liver to the subdiaphragmatic space, where there is moderate pneumoperitoneum. The jejunal-jejunal anastomosis appears patent. There is mild wall thickening of multiple jejunal loops consistent with infectious, inflammatory or ischemic enteritis. There is gas and stool throughout the colon. Appendix: The appendix is surgically absent. Intraperitoneal space: There is pneumoperitoneum likely secondary to gastric perforation. Vasculature: There is moderate atherosclerotic calcification of the abdominal aorta and its branches without aneurysm.The celiac trunk, SMA and CHASIDY are widely patent. Lymph nodes: No enlarged retroperitoneal or mesenteric lymph nodes. Urinary bladder: The bladder shows a normal contour and is free of calcific opacities. Reproductive: Prior hysterectomy. Bones/joints: No acute fracture. Soft tissues: Normal. CT/CT abdomen pelvis w con* [id number] IMPRESSION: 1. Status post Riya-en-Y gastric bypass surgery with perforation and pneumoperitoneum. Consider perforation at anastomotic ulcers of the gastrojejunostomy or perforation of the gastric remnant, which appears dilated and inflamed. 2. There is mild wall thickening of multiple jejunal loops consistent with infectious, inflammatory or ischemic enteritis. THIS REPORT CONTAINS FINDINGS THAT MAY BE CRITICAL TO PATIENT CARE. The findings were verbally communicated via telephone conference with ALFREDA ESPARZA at 8:29 PM CDT on 05/06/2025. The findings were acknowledged and understood. COMMENTS: Consistent with the [employer]'s Incidental Findings Committee white paper (J Am Phylicia Radiol 2018): Any incidental renal lesion less than 1 cm or classified as too small to characterize, or any incidental cystic renal lesion characterized as simple-appearing, is likely benign. No follow-up imaging is recommended for these lesions per consensus recommendations based on imaging criteria.
[2025-05-06] MEDS: morphine 4 mg/mL SDV 1 mL IVP (18:11)
[2025-05-06 18:15] LABS: Troponin(5th) Baseline 11 ng/L (0-10)
[2025-05-06 18:18] LABS: Alanine Aminotransferase 16 U/L (0-33); Albumin Level 3.5 g/dL (3.5-5.2); Alkaline Phosphatase 77 U/L (35-105); Blood Urea Nitrogen 17 mg/dL (6-20); Calcium 8.8 mg/dL (8.5-10.5); Carbon Dioxide 18 mmol/L (22-29); Chloride 100 mmol/L (98-107); Creatinine Clr Calc Pharmacy 102.4696; Globulin 2.6 g/dL (1.3-4.6); Glucose 112 mg/dL (65-115); Osmolality Calculated 282 mOsm/kg (285-295); Sodium 135 mmol/L (136-145); Total Protein 6.1 g/dL (6.6-8.7)
[2025-05-06 18:20] LABS: Anion Gap 21.4 (5-19); Potassium 4.4 mmol/L (3.5-5.1)
[2025-05-06 18:21] LABS: Aspartate Amino Transferase 25 U/L (0-32)
[2025-05-06] MEDS: iohexol 350 mg/mL 500 mL Btl (per mL) IV (18:52)
[2025-05-06 18:55] LABS: Lipase 26 U/L (13-60); NT Pro B Type Natriuretic Pept 2142 pg/mL (0-125)
--- NOTE | 2025-05-06 19:18 | PC.NURSE ---
This nurse assessed pt chest pain. rated 6, has improved, pt reports center c.p, still stabbing but not as bad . Pt was resting in bed with eyes closed on entering room, no acute distress noted.
--- NOTE | 2025-05-06 19:21 | ECG_ITS ---
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
[2025-05-06 20:06] LABS: Troponin 5 2HR 12.12 ng/L (0-10); Troponin 5 2HR Delta 1.12 ABS# (0-10)
[2025-05-06] MEDS: piperacillin-tazobactam 3.375 GM in sodium chloride 0.9% (plus) 50 ML IV (20:43)
[2025-05-06] MEDS: pantoprazole 40 mg SDV IVP (21:05)
[2025-05-06] MEDS: HYDROmorphone 0.5 MG/0.5 ML INJ IVP (21:18)
[2025-05-06 21:21] LABS: Glucose Urine UA Norm (Normal); Nitrate Urine Negative (Negative); Specific Gravity, Urine 1.015 (1.005-1.030); UA Manual Slide Review YES
[2025-05-06 21:25] LABS: Add Urine Microscopic? YES
[2025-05-06 21:40] LABS: Lactic Sepsis W/Reflex 1.3 mmol/L (0.5-2.2)
--- NOTE | 2025-05-06 21:40 | ECG_ITS ---
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 Measurements Intervals [place] Rate: 92 P: 0 VT: 0 QRS: 46 QRSD: 101 T: 82 QT: QTc: Interpretive Statements SINUS RHYTHM WITH FREQUENT PREMATURE VENTRICULAR CONTRACTIONS NONSPECIFIC T-WAVE ABNORMALITY INDETERMINATE QT INTERVAL DUE TO ARTIFACT AND FREQUENT PVCS Compared to ECG 05/06/2025 18:10:13 FREQUENT PVCS ARE NEW Electronically Signed On 05-09-2025 22:50:41 CDT by Javier Roger M.D. [email or web address]
[2025-05-06] MEDS: LORazepam 1 MG/0.5 ML injection IVP ×2 (21:45→22:35)
[2025-05-06] MEDS: amiodarone 50 mg/mL SDV 3 mL 150 MG IVP (21:50)
--- NOTE | 2025-05-06 21:58 | PC.NURSE ---
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 PT checked on and is anxious at this time. Reports that she is still having 10/10 abd pain that is radiating into the substernal chest. Provider made aware and repeat ekg performed. IVP ativan 1mg given. Pt has had several small runs of vtach on monitor. Amio 150mg iv ordered by dr patel and pushed over 10 mins. Pt states that she is feeling better at this point. Pain 7/10 and no longer feeling as anxious. at bedside talking with patient at this time.
[2025-05-06 22:20] LABS: Magnesium 1.9 mg/dL (1.7-2.3)
[2025-05-06] MEDS: magnesium sulfate premix 2 GM/50 ML PIGGYBACK IV (22:36)
[2025-05-06 23:46] LABS: Troponin 5 6HR 13.83 ng/L (0-10); Troponin 5 6HR Delta 2.83 ng/L (0-12)
[2025-05-07] VITALS: BP 123/67; PULSE 73; RESP 21; O2SAT 98
[2025-05-07 00:15] VITALS: BP 111/64; PULSE 74; RESP 21; O2SAT 98
[2025-05-07 00:31] VITALS: BP 102/57; PULSE 76; O2SAT 98
== END 2025-05-07 00:46 | disposition short-term general hospital (02) ==
PROVIDERS: Emergency Provider Physician Assistant
DX: K25.1 Acute gastric ulcer with perforation (principal); I47.20 Ventricular tachycardia, unspecified; Z98.84 Bariatric surgery status
CPT/HCPCS: 36415; 71045; 74177; 80053; 81001; 83605; 83690; 83735; 83880; 84100; 84484; 85025; 87040; 93005; 96365; 96367; 96375; 96376; 99285; J0282; J1171; J2060; J2270; J2470; J2543; J2765; J3475; J9999